=== PATIENT | male | born 1940 | race Caucasian/White ===

== ENCOUNTER 2019-10-14 15:12 | Outpatient (CLI) | payer MEDICARE, BC ==
--- NOTE | 2019-10-14 15:29 | RAD ---
PA AND LATERAL VIEWS CHEST: HISTORY: Positive PPD. Cough and shortness of breath. COMPARISON: 11/07/2015. FINDINGS: The heart size is normal. The lungs are expanded without lobar consolidation, pneumothoraces, or ple ural effusions. There are degenerative changes in the acromioclavicular joints. There is stable com pression of a lower thoracic/upper lumbar vertebral body. IMPRESSION: No acute process. No radiographic evidence of active pulmonary tuberculosis. POS: [facility]
== END 2019-10-14 15:13 | disposition home or self-care (01) ==
LOC: BICRAD 15:12
PROVIDERS: ATTEND Internal Medicine Rheumatology
DX: M05.79 Rheumatoid arthritis with rheumatoid factor of multiple sites without organ or systems involvement (principal)
CPT/HCPCS: 71046

== ENCOUNTER 2020-08-15 03:35 | Inpatient (IN) | payer MEDICARE, BC ==
[2020-08-15 04:34] LABS: #Eosinphils 0.2 thou/uL (0.0-0.7); #Lymphocytes 1.5 thou/uL (1.20-3.40); #Monocytes 1.4 thou/uL (0.11-0.59); %Basophils 0.2 % (0.0-1.0); %Eosinophils 1.1 % (0.0-10.0); %Lymphocytes 10.3 % (21.0-51.0); %Monocytes 10.2 % (0.0-10.0); %Neutrophils 78.2 % (42.0-75.0); Hemoglobin 13.4 g/dL (14.0-18.0); Mean Corpuscular HGB CONC 33.4 g/dL (32.0-36.0); Mean Corpuscular Hemoglobin 28.8 pg (27.0-31.0); Mean Corpuscular Volume 86.2 fL (78.0-98.0); Mean Platelet Volume 8.7 fL (7.4-10.4); Platelet Count 230 thou/uL (130-400); RBC Distribution Width 14.4 % (11.5-14.5); Red Blood Cell (RBC) Count 4.64 mill/uL (4.70-6.10); White Blood Cell (WBC) Count 14.1 thou/uL (4.8-10.8)
[2020-08-15 04:47] LABS: ALT (SGPT) 14 U/L (8-55); AST (SGOT) 15 U/L (5-34); Albumin 4.3 g/dL (3.4-4.8); Alkaline Phosphatase 118 U/L (40-110); Anion Gap 13 mmol/L (10-20); BUN (Urea Nitrogen) 33 mg/dL (8.4-25.7); Bilirubin, Total 0.7 mg/dL (0.2-1.2); Calc. Creatinine Clearance 0 mL/min (70-130); Calcium 9.1 mg/dL (7.8-10.44); Carbon Dioxide 23 mmol/L (23-31); Chloride 105 mmol/L (98-107); Globulin 3.9 g/dL (2.4-3.5); Glucose 186 mg/dL (83-110); Potassium 4.2 mmol/L (3.5-5.1); Protein, Total 8.2 g/dL (5.8-8.1); Sodium 137 mmol/L (136-145)
[2020-08-15] MEDS ORDERED: Morphine 4 MG/ML VIAL ONE (05:35)
[2020-08-15] MEDS ORDERED: Morphine 4 MG/ML VIAL SLOW IVP PRN (08:01)
[2020-08-15] MEDS ORDERED: Nitroglycerin 0.4 MG TAB (25 Tab Bottle) SL PRN (08:02)
[2020-08-15] MEDS ORDERED: Ondansetron PF 4 MG/2 ML Vial IVP PRN ×2 (08:15→09:01)
[2020-08-15] MEDS ORDERED: Ondansetron ODT 4 MG TAB SL PRN (08:15)
[2020-08-15] MEDS ORDERED: Acetaminophen 325 MG TAB PO PRN ×2 (08:15→09:01)
[2020-08-15 08:28] LABS: Troponin I 0.019 ng/mL (< 0.028)
[2020-08-15] MEDS ORDERED: Atorvastatin Calcium 20 MG TAB PO SCH (09:00)
[2020-08-15] MEDS ORDERED: Guaifenesin DM 100-10/5 ML UDCUP PO PRN (09:01)
[2020-08-15] MEDS ORDERED: Senokot S 8.6-50 MG TAB PO PRN (09:01)
[2020-08-15] MEDS ORDERED: Bisacodyl 10 MG SUPP PR PRN (09:01)
[2020-08-15] MEDS ORDERED: Calcium Carbonate 500 MG ChewTAB PO PRN (09:01)
[2020-08-15] MEDS ORDERED: Sodium Chloride 0.9% 1,000 ML IV SCH (09:01)
[2020-08-15] MEDS ORDERED: Albuterol 200 PUFF (6.7GM INHALER) INH SCH (09:15)
[2020-08-15] MEDS ORDERED: Aspirin Chewable 81 MG TAB ONE (11:29)
[2020-08-15] MEDS ORDERED: Levofloxacin 500 mg/D5W 100 ml Premix Bag ONE (11:31)
[2020-08-15] MEDS ORDERED: methylPREDNISolone Sod Succ 40 MG VIAL ONE (11:31)
[2020-08-15] MEDS ORDERED: Enoxaparin Sodium 40 MG/0.4 ML SYRINGE ONE (11:31)
[2020-08-15] MEDS ORDERED: Pantoprazole 40 MG VIAL ONE (11:39)
[2020-08-15] MEDS ORDERED: Nitroglycerin 2% Ointment 1 INCH/1 GM Packet ONE (11:39)
[2020-08-15] MEDS: Enoxaparin Sodium 40 MG/0.4 ML SYRINGE SC SCH (11:56)
[2020-08-15] MEDS: Aspirin Chewable 81 MG TAB PO SCH (11:56)
[2020-08-15] MEDS: methylPREDNISolone Sod Succ 40 MG VIAL IVP SCH ×3 (11:58→21:55)
[2020-08-15] MEDS: Nitroglycerin 2% Ointment 1 INCH/1 GM Packet TOP SCH ×2 (12:02→18:17)
[2020-08-15] MEDS ORDERED: Iopamidol 370 76% 100 ML VIAL ONE (13:00)
[2020-08-15 13:57] LABS: SARS-CoV-2 PCR by NAA Not Detected (NotDetected)
[2020-08-15] MEDS: Leflunomide 10 mg Tablet PO SCH (16:12)
[2020-08-15 17:32] VITALS: BMI 28.6
[2020-08-15] MEDS: Carvedilol 3.125 MG TAB PO SCH (18:33)
[2020-08-15] MEDS: Atorvastatin Calcium 20 MG TAB PO SCH (21:55)
[2020-08-16] MEDS: methylPREDNISolone Sod Succ 40 MG VIAL IVP SCH ×4 (04:16→20:44)
[2020-08-16 05:26] LABS: #Lymphocytes 0.9 thou/uL (1.20-3.40); #Monocytes 0.3 thou/uL (0.11-0.59); #Neutrophils 9.7 thou/uL (1.40-6.50); %Eosinophils 0.1 % (0.0-10.0); %Lymphocytes 8.2 % (21.0-51.0); %Monocytes 2.9 % (0.0-10.0); %Neutrophils 88.8 % (42.0-75.0); Mean Corpuscular HGB CONC 32.6 g/dL (32.0-36.0); Mean Corpuscular Hemoglobin 28.2 pg (27.0-31.0); Mean Corpuscular Volume 86.7 fL (78.0-98.0); Platelet Count 195 thou/uL (130-400); RBC Distribution Width 14.3 % (11.5-14.5); Red Blood Cell (RBC) Count 3.89 mill/uL (4.70-6.10); White Blood Cell (WBC) Count 10.9 thou/uL (4.8-10.8)
[2020-08-16 05:51] LABS: Anion Gap 14 mmol/L (10-20); BUN (Urea Nitrogen) 30 mg/dL (8.4-25.7); Calc. Creatinine Clearance 50 mL/min (70-130); Calcium 8.9 mg/dL (7.8-10.44); Carbon Dioxide 19 mmol/L (23-31); Cardiac Risk 2.3 (Less than 4.5); Chloride 107 mmol/L (98-107); Cholesterol 99 mg/dl (< 200 Desired); Glucose 212 mg/dL (83-110); HDL Cholesterol 43 mg/dL (>60 Neg Risk); LDL Cholesterol, Calculated 41 mg/dL; Potassium 3.8 mmol/L (3.5-5.1); Sodium 136 mmol/L (136-145); Triglycerides 74 mg/dL (Less than 150)
[2020-08-16] MEDS: Aspirin Chewable 81 MG TAB PO SCH (10:07)
[2020-08-16] MEDS: Carvedilol 3.125 MG TAB PO SCH ×2 (10:07→16:45)
[2020-08-16] MEDS: Enoxaparin Sodium 40 MG/0.4 ML SYRINGE SC SCH (10:08)
[2020-08-16] MEDS: Leflunomide 10 mg Tablet PO SCH (10:09)
[2020-08-16] MEDS ORDERED: Dextrose 50% Abboject 50 ML SYRINGE SLOW IVP PRN (11:44)
[2020-08-16] MEDS ORDERED: Dextrose 5% in Water 1,000 ML IV PRN (11:44)
[2020-08-16] MEDS ORDERED: ADENOSINE 60 MG/20 ML VIAL ONE (12:39)
[2020-08-16] MEDS: HumaLOG 300 UNITS/3 ML VIAL SC PRN ×2 (16:45→20:44)
[2020-08-16] MEDS: Atorvastatin Calcium 20 MG TAB PO SCH (20:43)
[2020-08-16] MEDS: guaiFENesin ER 600 MG TAB PO SCH (20:43)
[2020-08-17] MEDS: methylPREDNISolone Sod Succ 40 MG VIAL IVP SCH ×2 (04:55→11:09)
[2020-08-17] MEDS: HumaLOG 300 UNITS/3 ML VIAL SC PRN ×2 (06:35→11:09)
[2020-08-17 07:53] VITALS: TEMP 98.4
[2020-08-17] MEDS: Aspirin Chewable 81 MG TAB PO SCH (08:23)
[2020-08-17] MEDS: Leflunomide 10 mg Tablet PO SCH (08:23)
[2020-08-17] MEDS: guaiFENesin ER 600 MG TAB PO SCH (08:24)
[2020-08-17] MEDS: Carvedilol 3.125 MG TAB PO SCH (08:24)
[2020-08-17] MEDS: Enoxaparin Sodium 40 MG/0.4 ML SYRINGE SC SCH (08:24)
[2020-08-17 11:45] VITALS: BP 159/72
== END 2020-08-17 14:15 | disposition home or self-care (01) | DRG 189 ==
LOC: ERS 03:35 → ERHOLD 06:42 → OBSVTOIN 09:01 → 2NO 16:28
PROVIDERS: ADMIT Internal Medicine; ATTEND Student in an Organized Health Care Education/Training Program
DX: J96.01 Acute respiratory failure with hypoxia (principal); J44.1 Chronic obstructive pulmonary disease with (acute) exacerbation; N17.9 Acute kidney failure, unspecified; Z85.51 Personal history of malignant neoplasm of bladder; E78.5 Hyperlipidemia, unspecified; M06.9 Rheumatoid arthritis, unspecified; Z98.42 Cataract extraction status, left eye; Z79.82 Long term (current) use of aspirin; Z87.891 Personal history of nicotine dependence; Z80.8 Family history of malignant neoplasm of other organs or systems; Z66 Do not resuscitate; I12.9 Hypertensive chronic kidney disease with stage 1 through stage 4 chronic kidney disease, or unspecified chronic kidney disease; I25.10 Atherosclerotic heart disease of native coronary artery without angina pectoris; E11.22 Type 2 diabetes mellitus with diabetic chronic kidney disease; N18.30 Chronic kidney disease, stage 3 unspecified; R07.9 Chest pain, unspecified
CPT/HCPCS: 36415; 36416; 71045; 71275; 74174; 78452; 80048; 80053; 80061; 83605; 83880; 84484; 85025; 85379; 87040; 87070; 87205; 87635; 93005; 93017; 93306; 94640; 94760; 96374; A9500; C9113; G0378; J0153; J1650; J1956; J2270; J2920; J7620; Q9967; U0003; U0005

== ENCOUNTER 2021-09-04 05:45 | Inpatient (IN) | payer MEDICARE, BC ==
[2021-09-04 07:38] LABS: Troponin I 0.068 ng/mL (< 0.028)
[2021-09-04] MEDS ORDERED: HYDROcodone/Acetaminophen 5/325 mg Tablet PO PRN (07:44)
[2021-09-04] MEDS ORDERED: Acetaminophen 325 MG TAB PO PRN (07:44)
[2021-09-04] MEDS ORDERED: Sodium Chloride 0.9% 1,000 ML IV SCH (08:00)
[2021-09-04 08:01] LABS: Anion Gap 14 mmol/L (10-20); BUN (Urea Nitrogen) 46 mg/dL (8.4-25.7); Calc. Creatinine Clearance 0 mL/min (70-130); Calcium 7.7 mg/dL (7.8-10.44); Carbon Dioxide 13 mmol/L (23-31); Chloride 106 mmol/L (98-107); Glucose 211 mg/dL (83-110); Potassium 3.7 mmol/L (3.5-5.1); Sodium 129 mmol/L (136-145)
[2021-09-04] MEDS ORDERED: Dextrose 50% Abboject 50 ML SYRINGE SLOW IVP PRN (08:01)
[2021-09-04] MEDS ORDERED: Dextrose 5% in Water 1,000 ML IV PRN (08:01)
[2021-09-04] MEDS ORDERED: hydrALAZINE 20 MG/ML VIAL SLOW IVP PRN (08:02)
[2021-09-04 08:05] LABS: SARS-CoV-2 NAA Rapid Test Not Detected (NotDetected)
[2021-09-04 08:36] LABS: Hemoglobin 11.7 g/dL (14.0-18.0); Mean Corpuscular HGB CONC 33.7 g/dL (32.0-36.0); Mean Corpuscular Hemoglobin 30.5 pg (27.0-31.0); Mean Corpuscular Volume 90.7 fL (78.0-98.0); Mean Platelet Volume 7.6 fL (7.4-10.4); Platelet Count 220 thou/uL (130-400); RBC Distribution Width 15.6 % (11.5-14.5); Red Blood Cell (RBC) Count 3.84 mill/uL (4.70-6.10); White Blood Cell (WBC) Count 26.6 thou/uL (4.8-10.8)
[2021-09-04 09:11] LABS: Band 37 % (5-11); Lymphocytes 6 % (21-51); MDiff Complete? YES; Monocytes 6 % (0-10); Neutrophil 51 % (42-75); Platelet Morphology Comment Appears Adequate; RBC Morphology Normal
[2021-09-04] MEDS ORDERED: Sodium Bicarbonate 75 MEQ in Sodium Chloride 0.45% 1,000 ML IV SCH (09:15)
[2021-09-04] MEDS ORDERED: Piperacillin/Tazobactam 3.375 GM VIAL ONE (09:54)
[2021-09-04] MEDS ORDERED: Enoxaparin Sodium 30 MG/0.3 ML SYRINGE ONE (09:54)
[2021-09-04 11:06] LABS: Troponin I 0.061 ng/mL (< 0.028)
[2021-09-04] MEDS ORDERED: Vancomycin HCl 1.25 GM in Sodium Chloride 0.9% 250 ML 250 ML IVPB SCH (13:15)
[2021-09-04] MEDS: Enoxaparin Sodium 30 MG/0.3 ML SYRINGE SC SCH (14:06)
[2021-09-04] MEDS: guaiFENesin ER 600 MG TAB PO SCH ×2 (14:08→20:35)
[2021-09-04] MEDS: Piperacillin/Tazobactam 3.375 GM in Sodium Chloride 0.9% 100 ML IVPB SCH ×2 (14:09→20:35)
[2021-09-04] MEDS: Ondansetron PF 4 MG/2 ML Vial IVP PRN ×2 (15:07→20:15)
[2021-09-04] MEDS ORDERED: Amlodipine 10 MG TAB PO SCH (18:15)
[2021-09-04] MEDS: Mometasone 100 MCG/Formoterol 5 MCG 120 PUFF INHALER INH SCH (18:32)
[2021-09-05] MEDS ORDERED: Famotidine 20 MG TAB PO SCH (03:00)
[2021-09-05] MEDS: Ondansetron PF 4 MG/2 ML Vial IVP PRN ×2 (03:39→10:29)
[2021-09-05 05:18] LABS: Anion Gap 16 mmol/L (10-20); BUN (Urea Nitrogen) 56 mg/dL (8.4-25.7); Calc. Creatinine Clearance 22 mL/min (70-130); Calcium 7.7 mg/dL (7.8-10.44); Carbon Dioxide 14 mmol/L (23-31); Chloride 104 mmol/L (98-107); Glucose 165 mg/dL (83-110); Potassium 3.9 mmol/L (3.5-5.1); Sodium 130 mmol/L (136-145)
[2021-09-05] MEDS: Piperacillin/Tazobactam 3.375 GM in Sodium Chloride 0.9% 100 ML IVPB SCH ×2 (05:21→18:25)
[2021-09-05 05:53] LABS: Band 22 % (5-11); Hemoglobin 12.2 g/dL (14.0-18.0); Lymphocytes 2 % (21-51); MDiff Complete? YES; Mean Corpuscular HGB CONC 32.4 g/dL (32.0-36.0); Mean Corpuscular Hemoglobin 29.6 pg (27.0-31.0); Mean Corpuscular Volume 91.4 fL (78.0-98.0); Mean Platelet Volume 7.9 fL (7.4-10.4); Monocytes 1 % (0-10); Neutrophil 75 % (42-75); Platelet Count 219 thou/uL (130-400); RBC Distribution Width 15.9 % (11.5-14.5); Red Blood Cell (RBC) Count 4.11 mill/uL (4.70-6.10); White Blood Cell (WBC) Count 28.1 thou/uL (4.8-10.8)
[2021-09-05] MEDS: Mometasone 100 MCG/Formoterol 5 MCG 120 PUFF INHALER INH SCH ×2 (06:45→18:44)
[2021-09-05] MEDS: Aspirin Chewable 81 MG TAB PO SCH (09:38)
[2021-09-05] MEDS: Leflunomide 10 mg Tablet PO SCH (09:38)
[2021-09-05] MEDS: Magnesium Oxide 400 MG TAB PO SCH (09:38)
[2021-09-05] MEDS: Enoxaparin Sodium 30 MG/0.3 ML SYRINGE SC SCH (09:39)
[2021-09-05] MEDS: Empagliflozin 10 MG TAB PO SCH (09:39)
[2021-09-05] MEDS: Amlodipine 10 MG TAB PO SCH (09:39)
[2021-09-05] MEDS: Calcium Carbonate 600 MG + Vit D TAB PO SCH (09:39)
[2021-09-05] MEDS: Atorvastatin Calcium 20 MG TAB PO SCH (09:39)
[2021-09-05] MEDS: guaiFENesin ER 600 MG TAB PO SCH ×2 (09:39→20:58)
[2021-09-05 13:18] LABS: Vancomycin, Random 9.7 ug/mL (See Comment)
[2021-09-05] MEDS ORDERED: VANCOMYCIN 1.25 GM/250 ML BAG 1.25 GM in Premix Bag 1 BAG IVPB SCH (14:00)
[2021-09-05] MEDS ORDERED: Vancomycin 1 GM in Premix Bag 1 BAG IVPB SCH (14:30)
[2021-09-05] MEDS: Famotidine 20 MG TAB PO SCH (20:58)
[2021-09-06] MEDS: Piperacillin/Tazobactam 3.375 GM in Sodium Chloride 0.9% 100 ML IVPB SCH ×2 (05:35→19:02)
[2021-09-06] MEDS: Mometasone 100 MCG/Formoterol 5 MCG 120 PUFF INHALER INH SCH ×2 (07:34→18:54)
[2021-09-06] MEDS ORDERED: Sodium Chloride 0.9% 1,000 ML IV SCH (08:00)
[2021-09-06 09:12] LABS: Anion Gap 18 mmol/L (10-20); BUN (Urea Nitrogen) 66 mg/dL (8.4-25.7); Calc. Creatinine Clearance 17 mL/min (70-130); Calcium 8.1 mg/dL (7.8-10.44); Carbon Dioxide 14 mmol/L (23-31); Chloride 108 mmol/L (98-107); Glucose 133 mg/dL (83-110); Potassium 3.9 mmol/L (3.5-5.1); Sodium 136 mmol/L (136-145)
[2021-09-06] MEDS: Magnesium Oxide 400 MG TAB PO SCH (09:20)
[2021-09-06] MEDS: Aspirin Chewable 81 MG TAB PO SCH (09:20)
[2021-09-06] MEDS: Calcium Carbonate 600 MG + Vit D TAB PO SCH (09:21)
[2021-09-06] MEDS: guaiFENesin ER 600 MG TAB PO SCH ×2 (09:21→21:00)
[2021-09-06] MEDS: Empagliflozin 10 MG TAB PO SCH (09:21)
[2021-09-06] MEDS: Atorvastatin Calcium 20 MG TAB PO SCH (09:21)
[2021-09-06] MEDS: Amlodipine 10 MG TAB PO SCH (09:21)
[2021-09-06] MEDS: Leflunomide 10 mg Tablet PO SCH (09:21)
[2021-09-06] MEDS: Enoxaparin Sodium 30 MG/0.3 ML SYRINGE SC SCH (09:21)
[2021-09-06] MEDS: Sodium Chloride 0.9% 1,000 ML IV SCH (15:02)
[2021-09-06 15:26] LABS: Vancomycin, Random 16.7 ug/mL (See Comment)
[2021-09-06] MEDS ORDERED: Vancomycin 1 GM in Premix Bag 1 BAG IVPB SCH (15:30)
[2021-09-06] MEDS: HumaLOG 300 UNITS/3 ML VIAL SC PRN (19:02)
[2021-09-06] MEDS: Famotidine 20 MG TAB PO SCH (21:00)
[2021-09-07] MEDS: Sodium Chloride 0.9% 1,000 ML IV SCH ×2 (04:01→21:31)
[2021-09-07] MEDS: Piperacillin/Tazobactam 3.375 GM in Sodium Chloride 0.9% 100 ML IVPB SCH (05:18)
[2021-09-07 06:12] LABS: Anion Gap 13 mmol/L (10-20); BUN (Urea Nitrogen) 68 mg/dL (8.4-25.7); Calc. Creatinine Clearance 17 mL/min (70-130); Calcium 7.9 mg/dL (7.8-10.44); Carbon Dioxide 15 mmol/L (23-31); Chloride 110 mmol/L (98-107); Glucose 106 mg/dL (83-110); Potassium 3.4 mmol/L (3.5-5.1); Sodium 135 mmol/L (136-145)
[2021-09-07 06:38] LABS: Band 19 % (5-11); Eosinophils 1 % (0-10); Hemoglobin 10.2 g/dL (14.0-18.0); Lymphocytes 3 % (21-51); MDiff Complete? YES; Mean Corpuscular Hemoglobin 30.8 pg (27.0-31.0); Mean Corpuscular Volume 90.6 fL (78.0-98.0); Mean Platelet Volume 8.3 fL (7.4-10.4); Monocytes 4 % (0-10); Neutrophil 73 % (42-75); Platelet Count 164 thou/uL (130-400); RBC Distribution Width 15.8 % (11.5-14.5); Red Blood Cell (RBC) Count 3.32 mill/uL (4.70-6.10); White Blood Cell (WBC) Count 17.4 thou/uL (4.8-10.8)
[2021-09-07] MEDS: Mometasone 100 MCG/Formoterol 5 MCG 120 PUFF INHALER INH SCH ×2 (07:24→18:53)
[2021-09-07] MEDS ORDERED: Non-Formulary Item 1 EACH (Losartan Potassium [Cozaar] 50 MG Tablet) PO SCH (09:00)
[2021-09-07] MEDS: Aspirin Chewable 81 MG TAB PO SCH (09:28)
[2021-09-07] MEDS: Magnesium Oxide 400 MG TAB PO SCH (09:28)
[2021-09-07] MEDS: Enoxaparin Sodium 30 MG/0.3 ML SYRINGE SC SCH (09:28)
[2021-09-07] MEDS: Empagliflozin 10 MG TAB PO SCH (09:28)
[2021-09-07] MEDS: Atorvastatin Calcium 20 MG TAB PO SCH (09:28)
[2021-09-07] MEDS: Leflunomide 10 mg Tablet PO SCH (09:28)
[2021-09-07] MEDS: guaiFENesin ER 600 MG TAB PO SCH ×2 (09:28→21:32)
[2021-09-07] MEDS: Amlodipine 10 MG TAB PO SCH (09:28)
[2021-09-07] MEDS: Calcium Carbonate 600 MG + Vit D TAB PO SCH (09:28)
[2021-09-07 11:46] VITALS: BMI 27.8
[2021-09-07] MEDS: Sodium Bicarbonate Tab 325 MG TAB PO SCH ×2 (15:38→21:32)
[2021-09-07] MEDS: Famotidine 20 MG TAB PO SCH (21:32)
[2021-09-08] MEDS: Sodium Chloride 0.9% 1,000 ML IV SCH (05:25)
[2021-09-08] MEDS: Mometasone 100 MCG/Formoterol 5 MCG 120 PUFF INHALER INH SCH ×2 (06:37→18:39)
[2021-09-08] MEDS: Atorvastatin Calcium 20 MG TAB PO SCH (08:48)
[2021-09-08] MEDS: Calcium Carbonate 600 MG + Vit D TAB PO SCH (08:48)
[2021-09-08] MEDS: Empagliflozin 10 MG TAB PO SCH (08:48)
[2021-09-08] MEDS: Aspirin Chewable 81 MG TAB PO SCH (08:48)
[2021-09-08] MEDS: Amlodipine 10 MG TAB PO SCH (08:48)
[2021-09-08] MEDS: Enoxaparin Sodium 30 MG/0.3 ML SYRINGE SC SCH (08:48)
[2021-09-08] MEDS: guaiFENesin ER 600 MG TAB PO SCH ×2 (08:49→20:40)
[2021-09-08] MEDS: Sodium Bicarbonate Tab 325 MG TAB PO SCH ×3 (08:49→20:40)
[2021-09-08] MEDS: Leflunomide 10 mg Tablet PO SCH (08:49)
[2021-09-08] MEDS: Magnesium Oxide 400 MG TAB PO SCH (08:49)
[2021-09-08 09:56] LABS: Hemoglobin 10.4 g/dL (14.0-18.0); Mean Corpuscular HGB CONC 32.6 g/dL (32.0-36.0); Mean Corpuscular Hemoglobin 29.5 pg (27.0-31.0); Mean Corpuscular Volume 90.7 fL (78.0-98.0); Mean Platelet Volume 7.8 fL (7.4-10.4); Platelet Count 186 thou/uL (130-400); RBC Distribution Width 15.9 % (11.5-14.5); Red Blood Cell (RBC) Count 3.51 mill/uL (4.70-6.10)
[2021-09-08 10:16] LABS: Anion Gap 17 mmol/L (10-20); BUN (Urea Nitrogen) 68 mg/dL (8.4-25.7); Calc. Creatinine Clearance 16 mL/min (70-130); Calcium 7.7 mg/dL (7.8-10.44); Carbon Dioxide 12 mmol/L (23-31); Chloride 110 mmol/L (98-107); Glucose 157 mg/dL (83-110); Potassium 3.4 mmol/L (3.5-5.1); Sodium 136 mmol/L (136-145)
[2021-09-08 10:56] LABS: Band 15 % (5-11); Lymphocytes 5 % (21-51); MDiff Complete? YES; Monocytes 6 % (0-10); Neutrophil 74 % (42-75); Platelet Morphology Comment Appears Adequate; Polychromasia SLIGHT = 2-3 cells (100X) (0-2/hpf)
[2021-09-08] MEDS: HumaLOG 300 UNITS/3 ML VIAL SC PRN (11:21)
[2021-09-08] MEDS: Lactated Ringer's 1,000 ML IV SCH ×2 (12:18→20:50)
[2021-09-08 16:38] LABS: Clarity Hazy (Clear); Leukocyte Unable to Interpret (Negative); Nitrite Unable to Interpret (Negative); Protein, Urine (Dipstick) Unable to Interpret mg/dL (Neg-Trace)
[2021-09-08 16:39] LABS: Bilirubin Unable to Interpret (Negative); Blood, Urine Unable to Interpret (Negative); Glucose, Urine (Dipstick) Unable to Interpret mg/dL (Negative); Ketone, Urine Unable to Interpret mg/dL (Negative); RBC/HPF 21-50 HPF (0-3); Urobilinogen UNABLE TO INTERPRET mg/dL (Less than 2)
[2021-09-08 16:40] LABS: Bacteria/HPF Rare-Few HPF (None Seen); Squamous Epithelial None Seen HPF (0-3)
[2021-09-08] MEDS ORDERED: methylPREDNISolone Sod Succ/PF 125 MG/2 ML VIAL IVP SCH (19:28)
[2021-09-08] MEDS: Famotidine 20 MG TAB PO SCH (20:40)
[2021-09-09] MEDS: HumaLOG 300 UNITS/3 ML VIAL SC PRN ×2 (05:23→20:29)
[2021-09-09] MEDS ORDERED: methylPREDNISolone Sod Succ 40 MG VIAL IVP SCH (06:00)
[2021-09-09 06:27] LABS: Anion Gap 21 mmol/L (10-20); BUN (Urea Nitrogen) 70 mg/dL (8.4-25.7); Calc. Creatinine Clearance 16 mL/min (70-130); Carbon Dioxide 10 mmol/L (23-31); Chloride 110 mmol/L (98-107); Glucose 212 mg/dL (83-110); Potassium 3.7 mmol/L (3.5-5.1); Sodium 137 mmol/L (136-145)
[2021-09-09 06:37] LABS: Band 16 % (5-11); Hemoglobin 10.3 g/dL (14.0-18.0); Lymphocytes 5 % (21-51); MDiff Complete? YES; Mean Corpuscular Hemoglobin 29.9 pg (27.0-31.0); Mean Corpuscular Volume 90.7 fL (78.0-98.0); Mean Platelet Volume 7.8 fL (7.4-10.4); Monocytes 1 % (0-10); Neutrophil 78 % (42-75); Platelet Count 185 thou/uL (130-400); Platelet Morphology Comment Appears Adequate; RBC Distribution Width 15.7 % (11.5-14.5); RBC Morphology Normal; Red Blood Cell (RBC) Count 3.44 mill/uL (4.70-6.10); White Blood Cell (WBC) Count 8.4 thou/uL (4.8-10.8)
[2021-09-09] MEDS: Mometasone 100 MCG/Formoterol 5 MCG 120 PUFF INHALER INH SCH ×2 (07:51→18:43)
[2021-09-09] MEDS ORDERED: methylPREDNISolone Sod Succ/PF 125 MG/2 ML VIAL IVP SCH (09:00)
[2021-09-09] MEDS: Enoxaparin Sodium 30 MG/0.3 ML SYRINGE SC SCH (09:42)
[2021-09-09] MEDS: Calcium Carbonate 600 MG + Vit D TAB PO SCH (09:42)
[2021-09-09] MEDS: Sodium Bicarbonate Tab 325 MG TAB PO SCH ×3 (09:42→20:28)
[2021-09-09] MEDS: guaiFENesin ER 600 MG TAB PO SCH ×2 (09:42→20:28)
[2021-09-09] MEDS: Aspirin Chewable 81 MG TAB PO SCH (09:42)
[2021-09-09] MEDS: Atorvastatin Calcium 20 MG TAB PO SCH (09:42)
[2021-09-09] MEDS: Magnesium Oxide 400 MG TAB PO SCH (09:42)
[2021-09-09] MEDS: Amlodipine 10 MG TAB PO SCH (09:43)
[2021-09-09] MEDS: Lactated Ringer's 1,000 ML IV SCH ×2 (09:43→18:16)
[2021-09-09] MEDS: Empagliflozin 10 MG TAB PO SCH (10:02)
[2021-09-09] MEDS: Leflunomide 10 mg Tablet PO SCH (10:02)
[2021-09-09] MEDS ORDERED: Saccharomyces boulardii 250 MG CAP PO SCH (11:15)
[2021-09-09] MEDS: WATER IV SCH (14:58)
[2021-09-09] MEDS: POTASSIUM CHLORIDE IV SCH (14:58)
[2021-09-09] MEDS: DEXTROSE 5% IV SCH (14:58)
[2021-09-09] MEDS: Saccharomyces boulardii 250 MG CAP PO SCH (14:58)
[2021-09-09] MEDS: SODIUM BICARBONATE IV SCH (14:58)
[2021-09-09] MEDS: Famotidine 20 MG TAB PO SCH (20:29)
[2021-09-10] MEDS: WATER IV SCH (01:44)
[2021-09-10] MEDS: DEXTROSE 5% IV SCH (01:44)
[2021-09-10] MEDS: POTASSIUM CHLORIDE IV SCH (01:44)
[2021-09-10] MEDS: SODIUM BICARBONATE IV SCH (01:44)
[2021-09-10] MEDS ORDERED: HumaLOG 300 UNITS/3 ML VIAL SC PRN (05:40)
[2021-09-10] MEDS: HumaLOG 300 UNITS/3 ML VIAL SC PRN ×2 (05:54→11:38)
[2021-09-10 06:07] LABS: #Lymphocytes 0.3 thou/uL (1.20-3.40); #Monocytes 0.5 thou/uL (0.11-0.59); #Neutrophils 5.7 thou/uL (1.40-6.50); %Eosinophils 0.1 % (0.0-10.0); %Lymphocytes 5.2 % (21.0-51.0); %Monocytes 7.9 % (0.0-10.0); %Neutrophils 86.9 % (42.0-75.0); Hemoglobin 8.6 g/dL (14.0-18.0); Mean Corpuscular HGB CONC 34.5 g/dL (32.0-36.0); Mean Corpuscular Hemoglobin 31.2 pg (27.0-31.0); Mean Corpuscular Volume 90.4 fL (78.0-98.0); Mean Platelet Volume 8.2 fL (7.4-10.4); Platelet Count 174 thou/uL (130-400); RBC Distribution Width 16.3 % (11.5-14.5); Red Blood Cell (RBC) Count 2.75 mill/uL (4.70-6.10); White Blood Cell (WBC) Count 6.6 thou/uL (4.8-10.8)
[2021-09-10 06:38] LABS: Anion Gap 15 mmol/L (10-20); BUN (Urea Nitrogen) 69 mg/dL (8.4-25.7); Calc. Creatinine Clearance 19 mL/min (70-130); Calcium 7.1 mg/dL (7.8-10.44); Carbon Dioxide 27 mmol/L (23-31); Chloride 100 mmol/L (98-107); Potassium 4.1 mmol/L (3.5-5.1); Sodium 138 mmol/L (136-145)
[2021-09-10 06:44] LABS: Glucose 692 mg/dL (83-110)
[2021-09-10] MEDS ORDERED: Sodium Chloride 0.9% 1,000 ML IV SCH (07:00)
[2021-09-10] MEDS ORDERED: Insulin Regular 300 UNITS/3 ML VIAL IVP SCH (07:00)
[2021-09-10] MEDS: Mometasone 100 MCG/Formoterol 5 MCG 120 PUFF INHALER INH SCH (08:12)
[2021-09-10] MEDS ORDERED: Non-Formulary Item 1 EACH (Cyanocobalamin (Vitamin B-12) [Vitamin B12] 5,000 MCG Tab.Rapd PO SCH (09:00)
[2021-09-10 09:07] VITALS: BP 128/66; TEMP 97.3
[2021-09-10] MEDS: Atorvastatin Calcium 20 MG TAB PO SCH (09:07)
[2021-09-10] MEDS: Leflunomide 10 mg Tablet PO SCH (09:07)
[2021-09-10] MEDS: Sodium Bicarbonate Tab 325 MG TAB PO SCH (09:08)
[2021-09-10] MEDS: Calcium Carbonate 600 MG + Vit D TAB PO SCH (09:08)
[2021-09-10] MEDS: Aspirin Chewable 81 MG TAB PO SCH (09:08)
[2021-09-10] MEDS: Saccharomyces boulardii 250 MG CAP PO SCH (09:08)
[2021-09-10] MEDS: Empagliflozin 10 MG TAB PO SCH (09:09)
[2021-09-10] MEDS: Magnesium Oxide 400 MG TAB PO SCH (09:09)
[2021-09-10] MEDS: Amlodipine 10 MG TAB PO SCH (09:09)
[2021-09-10] MEDS: guaiFENesin ER 600 MG TAB PO SCH (09:09)
[2021-09-10] MEDS: Enoxaparin Sodium 30 MG/0.3 ML SYRINGE SC SCH (09:10)
[2021-09-10] MEDS ORDERED: Cyanocobalamin (Vitamin B-12) 1,000 MCG TAB PO SCH (09:30)
[2021-09-17] MEDS ORDERED: Cyanocobalamin (Vitamin B-12) 1,000 MCG TAB PO SCH (09:00)
== END 2021-09-10 12:57 | disposition home or self-care (01) | DRG 698 ==
LOC: ERS 05:45 → ERHOLD 06:34 → 2NO 12:25 → MSONC 09-06 16:07
PROVIDERS: ADMIT Internal Medicine; ATTEND Internal Medicine
DX: T83.593A Infection and inflammatory reaction due to other urinary stents, initial encounter (principal); J69.0 Pneumonitis due to inhalation of food and vomit; A41.51 Sepsis due to Escherichia coli [E. coli]; J96.01 Acute respiratory failure with hypoxia; A41.59 Other Gram-negative sepsis; E87.2 Acidosis; N17.9 Acute kidney failure, unspecified; I13.0 Hypertensive heart and chronic kidney disease with heart failure and stage 1 through stage 4 chronic kidney disease, or unspecified chronic kidney disease; C64.1 Malignant neoplasm of right kidney, except renal pelvis; N39.0 Urinary tract infection, site not specified; I50.32 Chronic diastolic (congestive) heart failure; Z20.822 Contact with and (suspected) exposure to COVID-19; E78.5 Hyperlipidemia, unspecified; M06.9 Rheumatoid arthritis, unspecified; N18.30 Chronic kidney disease, stage 3 unspecified; C67.9 Malignant neoplasm of bladder, unspecified; E11.22 Type 2 diabetes mellitus with diabetic chronic kidney disease; D63.1 Anemia in chronic kidney disease; E11.65 Type 2 diabetes mellitus with hyperglycemia; J44.9 Chronic obstructive pulmonary disease, unspecified; E87.6 Hypokalemia; Z98.42 Cataract extraction status, left eye; Z79.82 Long term (current) use of aspirin; Z79.52 Long term (current) use of systemic steroids; Z79.899 Other long term (current) drug therapy; Z90.49 Acquired absence of other specified parts of digestive tract; Z80.8 Family history of malignant neoplasm of other organs or systems; Z92.21 Personal history of antineoplastic chemotherapy
CPT/HCPCS: 36415; 36416; 71045; 71046; 74176; 80048; 80202; 81003; 81015; 83880; 84145; 84484; 85025; 85652; 86140; 87040; 87077; 87149; 87186; 93306; 94640; 94799; J1650; J1815; J2405; J2543; J2920; J2930; J3370; J3480; J3490; J7050; J7070; J7120; J7620; U0002

== ENCOUNTER 2022-06-06 08:01 | Outpatient (CLI) | payer MEDICARE, BC ==
[2022-06-06] MEDS ORDERED: Magnevist 469MG/ML 20 ML VIAL ONE (15:17)
== END 2022-06-06 08:02 | disposition home or self-care (01) ==
LOC: TBSIIMAG 08:01
PROVIDERS: ATTEND Internal Medicine Hematology & Oncology
DX: H49.22 Sixth [abducent] nerve palsy, left eye (principal); C67.0 Malignant neoplasm of trigone of bladder; H16.422 Pannus (corneal), left eye
CPT/HCPCS: 70553; A9579

== ENCOUNTER 2022-07-11 07:31 | Inpatient (IN) | payer MEDICARE, BC ==
[2022-07-11] MEDS ORDERED: Cefepime 2 GM VIAL ONE (08:13)
[2022-07-11 08:18] LABS: Bacteria/HPF 2+ HPF (None Seen); Bilirubin Negative (Negative); Blood, Urine 3+ (Negative); Clarity Turbid (Clear); Glucose, Urine (Dipstick) Normal (Negative); Ketone, Urine Negative (Negative); Leukocyte 500 Leu/uL (Negative); Nitrite Negative (Negative); Protein, Urine (Dipstick) 50 mg/dL (Neg-Trace); RBC/HPF 21-50 HPF (0-3); Specific Gravity, Urine 1.009 (1.002-1.036); Squamous Epithelial None Seen HPF (0-3); Urobilinogen Normal mg/dL (Less than 2); WBC/HPF Greater than 50 HPF (0-3); pH, Urine 6.5 (5.0-9.0)
[2022-07-11 08:35] LABS: Hemoglobin 10.2 g/dL (14.0-18.0); Mean Corpuscular Hemoglobin 27.6 pg (27.0-31.0); Mean Corpuscular Volume 86.2 fl (78.0-98.0); Mean Platelet Volume 8.8 fL (7.4-10.4); Platelet Count 250 10x3/uL (130-400); RBC Distribution Width 15.6 % (11.5-14.5); White Blood Cell (WBC) Count 22.3 10x3/uL (4.8-10.8)
[2022-07-11 08:50] LABS: INR-International Normal Ratio 1.2; Prothrombin Time 15.9 sec (12.0-14.7)
[2022-07-11 08:51] LABS: PTT 37.5 sec (22.9-36.1)
[2022-07-11] MEDS ORDERED: Clindamycin/D5W 900 mg/50 ml Premix Bag ONE (08:55)
[2022-07-11 09:12] LABS: Band 16 % (5-11); Eosinophils 1 % (0-10); Lymphocytes 5 % (21-51); MDiff Complete? YES; Monocytes 10 % (0-10); Neutrophil 68 % (42-75); Platelet Morphology Comment Appears Adequate; Polychromasia SLIGHT = 2-3 cells (100X) (0-2/hpf)
[2022-07-11 09:14] LABS: ALT (SGPT) 12 U/L (8-55); AST (SGOT) 13 U/L (5-34); Alkaline Phosphatase 133 U/L (40-110); Anion Gap 14 mmol/L (10-20); BUN (Urea Nitrogen) 56 mg/dL (8.4-25.7); Bilirubin, Total 0.6 mg/dL (0.2-1.2); Calc. Creatinine Clearance 0 mL/min (70-130); Carbon Dioxide 14 mmol/L (23-31); Chloride 109 mmol/L (98-107); Estimated GFR 20; Globulin 3.1 g/dL (2.4-3.5); Glucose 107 mg/dL (83-110); Magnesium 1.9 mg/dL (1.6-2.6); Protein, Total 6.1 g/dL (5.8-8.1); Sodium 133 mmol/L (136-145)
[2022-07-11 09:32] LABS: CKMB 0.8 ng/mL (0-6.6)
[2022-07-11] MEDS ORDERED: Senokot S 8.6-50 MG TAB PO PRN (10:33)
[2022-07-11] MEDS ORDERED: Guaifenesin DM 100-10/5 ML UDCUP PO PRN (10:33)
[2022-07-11 10:56] LABS: SARS-CoV-2 NAA Rapid Test Not Detected (NotDetected)
[2022-07-11] MEDS ORDERED: Famotidine/PF 20 mg/2ml Vial ONE (11:06)
[2022-07-11] MEDS ORDERED: SUGAMMADEX SODIUM 200 MG/2 ML VIAL ONE ×2 (11:06→11:34)
[2022-07-11] MEDS ORDERED: fentaNYL PF 100 MCG/2 ML SYRINGE ONE (11:06)
[2022-07-11] MEDS ORDERED: Ipratropium/Albuterol 3 ML NEB ONE ×2 (11:17→13:16)
[2022-07-11] MEDS ORDERED: Metoprolol Tartrate 5 MG/5 ML VIAL ONE (11:36)
[2022-07-11] MEDS ORDERED: Ondansetron PF 4 MG/2 ML Vial ONE (11:36)
[2022-07-11] MEDS ORDERED: Lidocaine 1% PF 5 ML VIAL ONE (11:36)
[2022-07-11] MEDS ORDERED: Rocuronium Bromide 10 MG/ML (10ML VIAL) ONE (11:36)
[2022-07-11] MEDS ORDERED: PROPOFOL 200 MG/20 ML VIAL ONE (11:36)
[2022-07-11] MEDS ORDERED: Ondansetron HCl/PF 4 MG/2 ML Vial IVP PRN (13:17)
[2022-07-11] MEDS ORDERED: Ipratropium/Albuterol 3 ML NEB EZPAP SCH (13:17)
[2022-07-11] MEDS ORDERED: fentaNYL 50 mcg/mL 1 mL Vial ONE (13:44)
[2022-07-11 14:49] LABS: Troponin I 0.024 ng/mL (< 0.028)
[2022-07-11] MEDS: Acetaminophen 325 MG TAB PO PRN (15:33)
[2022-07-11] MEDS ORDERED: VANCOMYCIN 1.25 GM/250 ML BAG 1.25 GM in Premix Bag 1 BAG IVPB SCH (16:15)
[2022-07-11] MEDS ORDERED: Vancomycin Dose by Levels Sliding Scale (Wt 71-99) FS SCH (16:15)
[2022-07-11 16:50] LABS: Troponin I 0.033 ng/mL (< 0.028)
[2022-07-11] MEDS: Ipratropium/Albuterol 3 ML NEB NEB SCH (18:36)
[2022-07-11] MEDS: HYDROcodone/Acetaminophen 5/325 mg Tablet PO PRN (19:39)
[2022-07-11] MEDS ORDERED: Vancomycin HCl 1 GM in Sodium Chloride 0.9% 250 ML 300 ML IVPB SCH (21:00)
[2022-07-11] MEDS ORDERED: Sodium Chloride 0.9% 1,000 ML IV SCH (21:30)
[2022-07-12] MEDS: Ipratropium/Albuterol 3 ML NEB NEB SCH ×5 (02:07→22:41)
[2022-07-12 04:44] LABS: Hemoglobin 9.4 g/dL (14.0-18.0); Mean Corpuscular Hemoglobin 27.7 pg (27.0-31.0); Mean Corpuscular Volume 86.4 fl (78.0-98.0); Platelet Count 199 10x3/uL (130-400); RBC Distribution Width 15.6 % (11.5-14.5)
[2022-07-12 05:03] LABS: Anion Gap 16 mmol/L (10-20); BUN (Urea Nitrogen) 56 mg/dL (8.4-25.7); Calc. Creatinine Clearance 20 mL/min (70-130); Calcium 7.8 mg/dL (7.8-10.44); Chloride 114 mmol/L (98-107); Estimated GFR 19; Glucose 91 mg/dL (83-110); Potassium 3.7 mmol/L (3.5-5.1); Sodium 135 mmol/L (136-145)
[2022-07-12 05:16] LABS: Carbon Dioxide 9 mmol/L (23-31)
[2022-07-12 06:08] LABS: Anisocytosis SLIGHT = 6-15 cells (100X) (0-5/hpf); Band 5 % (5-11); Lymphocytes 5 % (21-51); MDiff Complete? YES; Monocytes 8 % (0-10); Neutrophil 82 % (42-75); Ovalocytes SLIGHT = 2-5 cells (100X) (0-1/hpf); Platelet Morphology Comment Appears Adequate; Polychromasia SLIGHT = 2-3 cells (100X) (0-2/hpf)
[2022-07-12] MEDS ORDERED: Dextrose 5% in Water 1,000 ML IV SCH (06:15)
[2022-07-12] MEDS ORDERED: Cefepime 2 GM in Sodium Chloride 0.9% 100 ML IVPB SCH (08:00)
[2022-07-12] MEDS ORDERED: Vancomycin 1 GM in Premix Bag 1 BAG IVPB SCH (08:45)
[2022-07-12] MEDS: Atorvastatin Calcium 20 MG TAB PO SCH (08:48)
[2022-07-12] MEDS: Cholecalciferol 1,000 UNITS (25 MCG) TAB PO SCH (08:48)
[2022-07-12] MEDS: Magnesium Oxide 400 MG TAB PO SCH (08:49)
[2022-07-12] MEDS: Amlodipine 10 MG TAB PO SCH (08:49)
[2022-07-12] MEDS: Leflunomide 10 mg Tablet PO SCH (08:49)
[2022-07-12] MEDS: Aspirin Chewable 81 MG TAB PO SCH (08:49)
[2022-07-12] MEDS: Cyanocobalamin (Vitamin B-12) 1,000 MCG TAB PO SCH (08:49)
[2022-07-12] MEDS: Empagliflozin 10 MG TAB PO SCH (08:50)
[2022-07-12] MEDS: HYDROcodone/Acetaminophen 5/325 mg Tablet PO PRN (08:55)
[2022-07-12] MEDS: Sodium Bicarbonate 150 MEQ in Dextrose 5% in Water 850 ML IV SCH ×2 (09:14→18:19)
[2022-07-12] MEDS ORDERED: Heparin 5,000 UNITS/ML VIAL SC SCH (09:15)
[2022-07-12] MEDS: Heparin 5,000 UNITS/ML VIAL SC SCH ×3 (09:26→22:25)
[2022-07-12] MEDS ORDERED: Meropenem 1 GM in Sodium Chloride 0.9% 100 ML IVPB SCH (09:30)
[2022-07-12 18:01] LABS: Vancomycin, Random 11.6 ug/mL (See Comment)
[2022-07-12] MEDS ORDERED: Vancomycin HCl 750 MG in Sodium Chloride 0.9% 250 ML 250 ML IVPB SCH (18:30)
[2022-07-12] MEDS: Acetaminophen 325 MG TAB PO PRN (20:39)
[2022-07-12] MEDS ORDERED: Acetaminophen 325 MG TAB PO SCH (21:30)
[2022-07-12 21:41] LABS: Mean Corpuscular HGB CONC 32.3 g/dL (32.0-36.0); Mean Corpuscular Hemoglobin 27.8 pg (27.0-31.0); Mean Corpuscular Volume 85.9 fl (78.0-98.0); Mean Platelet Volume 8.7 fL (7.4-10.4); Platelet Count 258 10x3/uL (130-400); RBC Distribution Width 15.5 % (11.5-14.5); Red Blood Cell (RBC) Count 3.25 mill/uL (4.70-6.10); White Blood Cell (WBC) Count 19.1 10x3/uL (4.8-10.8)
[2022-07-12 21:57] LABS: Anion Gap 16 mmol/L (10-20); BUN (Urea Nitrogen) 54 mg/dL (8.4-25.7); Calc. Creatinine Clearance 19 mL/min (70-130); Calcium 7.7 mg/dL (7.8-10.44); Carbon Dioxide 12 mmol/L (23-31); Chloride 112 mmol/L (98-107); Estimated GFR 18; Glucose 161 mg/dL (83-110); Magnesium 1.9 mg/dL (1.6-2.6); Potassium 3.7 mmol/L (3.5-5.1); Sodium 136 mmol/L (136-145)
[2022-07-12 22:07] LABS: Anisocytosis SLIGHT = 6-15 cells (100X) (0-5/hpf); Band 23 % (5-11); Eosinophils 1 % (0-10); Lymphocytes 2 % (21-51); MDiff Complete? YES; Monocytes 4 % (0-10); Neutrophil 69 % (42-75); Platelet Morphology Comment Appears Adequate
[2022-07-12] MEDS: Meropenem 500 MG in Sodium Chloride 0.9% 100 ML IVPB SCH (22:24)
[2022-07-13] MEDS: HYDROcodone/Acetaminophen 5/325 mg Tablet PO PRN ×3 (01:47→17:39)
[2022-07-13 04:39] LABS: Magnesium 1.8 mg/dL (1.6-2.6)
[2022-07-13] MEDS: Sodium Bicarbonate 150 MEQ in Dextrose 5% in Water 850 ML IV SCH ×2 (05:54→17:30)
[2022-07-13] MEDS: Heparin 5,000 UNITS/ML VIAL SC SCH (06:05)
[2022-07-13] MEDS: Ipratropium/Albuterol 3 ML NEB NEB SCH ×4 (07:36→22:33)
[2022-07-13] MEDS: Mometasone 100 MCG/Formoterol 5 MCG 120 PUFF INHALER INH SCH ×2 (07:48→19:18)
[2022-07-13] MEDS: Morphine 2 MG/ML VIAL SLOW IVP PRN ×2 (07:50→13:03)
[2022-07-13] MEDS: Meropenem 500 MG in Sodium Chloride 0.9% 100 ML IVPB SCH ×2 (09:09→20:50)
[2022-07-13] MEDS: Cholecalciferol 1,000 UNITS (25 MCG) TAB PO SCH (09:15)
[2022-07-13] MEDS: Atorvastatin Calcium 20 MG TAB PO SCH (09:15)
[2022-07-13] MEDS: Amlodipine 10 MG TAB PO SCH (09:15)
[2022-07-13] MEDS: Aspirin Chewable 81 MG TAB PO SCH (09:15)
[2022-07-13] MEDS: Cyanocobalamin (Vitamin B-12) 1,000 MCG TAB PO SCH (09:16)
[2022-07-13] MEDS: Empagliflozin 10 MG TAB PO SCH (09:16)
[2022-07-13] MEDS: Leflunomide 10 mg Tablet PO SCH (09:17)
[2022-07-13] MEDS: Magnesium Oxide 400 MG TAB PO SCH (09:17)
[2022-07-13] MEDS ORDERED: Amiodarone 150 MG in Dextrose 5% in Water 100 ML IVPB SCH (09:30)
[2022-07-13] MEDS ORDERED: Lidocaine 4% Topical Sol 50 ML BOT TOP PRN (11:44)
[2022-07-13 12:08] LABS: Anion Gap 17 mmol/L (10-20); BUN (Urea Nitrogen) 51 mg/dL (8.4-25.7); Calc. Creatinine Clearance 20 mL/min (70-130); Calcium 8.2 mg/dL (7.8-10.44); Carbon Dioxide 18 mmol/L (23-31); Chloride 108 mmol/L (98-107); Estimated GFR 19; Glucose 153 mg/dL (83-110); Potassium 3.3 mmol/L (3.5-5.1); Sodium 140 mmol/L (136-145)
[2022-07-13] MEDS: Albumin 25% 25 GM/100 ML BOT IVPB SCH ×2 (13:10→17:30)
[2022-07-13] MEDS ORDERED: Potassium Chloride 20 MEQ TAB PO SCH (16:00)
[2022-07-13] MEDS ORDERED: Vancomycin HCl 500 MG in Sodium Chloride 0.9% 100 ML IV SCH (18:00)
[2022-07-13] MEDS: Metoprolol Tartrate 25 MG TAB PO SCH (20:57)
[2022-07-14] MEDS: Albumin 25% 25 GM/100 ML BOT IVPB SCH ×4 (00:04→18:34)
[2022-07-14] MEDS: HYDROcodone/Acetaminophen 5/325 mg Tablet PO PRN (00:15)
[2022-07-14] MEDS: Morphine 2 MG/ML VIAL SLOW IVP PRN ×2 (02:15→10:40)
[2022-07-14] MEDS: Ondansetron PF 4 MG/2 ML Vial IVP PRN (02:30)
[2022-07-14] MEDS: Sodium Bicarbonate 150 MEQ in Dextrose 5% in Water 850 ML IV SCH ×3 (06:23→19:00)
[2022-07-14] MEDS: Ipratropium/Albuterol 3 ML NEB NEB SCH ×3 (06:47→18:51)
[2022-07-14] MEDS: Mometasone 100 MCG/Formoterol 5 MCG 120 PUFF INHALER INH SCH ×2 (06:58→18:59)
[2022-07-14 07:25] LABS: Anion Gap 17 mmol/L (10-20); BUN (Urea Nitrogen) 49 mg/dL (8.4-25.7); Calc. Creatinine Clearance 22 mL/min (70-130); Calcium 8.3 mg/dL (7.8-10.44); Carbon Dioxide 21 mmol/L (23-31); Chloride 104 mmol/L (98-107); Estimated GFR 21; Glucose 142 mg/dL (83-110); Magnesium 1.9 mg/dL (1.6-2.6); Potassium 3.3 mmol/L (3.5-5.1); Sodium 139 mmol/L (136-145)
[2022-07-14] MEDS ORDERED: Benzocaine 20% Spray 60 ML CAN PO SCH (09:30)
[2022-07-14] MEDS ORDERED: Piperacillin/Tazobactam 3.375 GM in Sodium Chloride 0.9% 100 ML IVPB SCH ×2 (10:00→14:00)
[2022-07-14] MEDS: Atorvastatin Calcium 20 MG TAB PO SCH (10:27)
[2022-07-14] MEDS: Cyanocobalamin (Vitamin B-12) 1,000 MCG TAB PO SCH (10:27)
[2022-07-14] MEDS: Cholecalciferol 1,000 UNITS (25 MCG) TAB PO SCH (10:27)
[2022-07-14] MEDS: Amlodipine 10 MG TAB PO SCH (10:39)
[2022-07-14] MEDS: Magnesium Oxide 400 MG TAB PO SCH (10:42)
[2022-07-14] MEDS: Leflunomide 10 mg Tablet PO SCH (10:42)
[2022-07-14] MEDS: Empagliflozin 10 MG TAB PO SCH (10:42)
[2022-07-14] MEDS: Aspirin Chewable 81 MG TAB PO SCH (10:42)
[2022-07-14] MEDS: Metoprolol Tartrate 25 MG TAB PO SCH ×2 (10:43→21:44)
[2022-07-14] MEDS: Meropenem 500 MG in Sodium Chloride 0.9% 100 ML IVPB SCH (10:44)
[2022-07-14] MEDS ORDERED: Potassium Chloride 40 MEQ in Premix Bag 1 BAG IVPB SCH (12:00)
[2022-07-14] MEDS ORDERED: Potassium Chloride 40 MEQ in Sodium Chloride 0.9% 250 ML 250 ML IVPB SCH (12:00)
[2022-07-14 17:24] LABS: Vancomycin, Random 15.8 ug/mL (See Comment)
[2022-07-14] MEDS ORDERED: Vancomycin HCl 500 MG in Sodium Chloride 0.9% 100 ML IV SCH (18:15)
[2022-07-14] MEDS: Piperacillin/Tazobactam 3.375 GM in Sodium Chloride 0.9% 100 ML IVPB SCH (21:50)
[2022-07-15] MEDS: Albumin 25% 25 GM/100 ML BOT IVPB SCH ×2 (01:37→05:43)
[2022-07-15] MEDS: Ipratropium/Albuterol 3 ML NEB NEB SCH ×4 (02:17→19:08)
[2022-07-15 04:22] LABS: Hemoglobin 9.2 g/dL (14.0-18.0); Magnesium 1.9 mg/dL (1.6-2.6); Mean Corpuscular HGB CONC 32.2 g/dL (32.0-36.0); Mean Corpuscular Hemoglobin 27.4 pg (27.0-31.0); Mean Corpuscular Volume 85.1 fl (78.0-98.0); Mean Platelet Volume 8.4 fL (7.4-10.4); Platelet Count 241 10x3/uL (130-400); RBC Distribution Width 15.7 % (11.5-14.5); Red Blood Cell (RBC) Count 3.37 mill/uL (4.70-6.10); White Blood Cell (WBC) Count 13.6 10x3/uL (4.8-10.8)
[2022-07-15 04:23] LABS: Anisocytosis SLIGHT = 6-15 cells (100X) (0-5/hpf); Band 32 % (5-11); Eosinophils 4 % (0-10); Lymphocytes 10 % (21-51); MDiff Complete? YES; Monocytes 7 % (0-10); Neutrophil 47 % (42-75); Platelet Morphology Comment Appears Adequate
[2022-07-15] MEDS: Amiodarone 450 MG in Dextrose 5% in Water 250 ML IVPB SCH ×2 (04:38→19:50)
[2022-07-15] MEDS: Sodium Bicarbonate 150 MEQ in Dextrose 5% in Water 850 ML IV SCH ×2 (05:45→18:34)
[2022-07-15] MEDS: Piperacillin/Tazobactam 3.375 GM in Sodium Chloride 0.9% 100 ML IVPB SCH ×3 (06:47→22:56)
[2022-07-15] MEDS: Mometasone 100 MCG/Formoterol 5 MCG 120 PUFF INHALER INH SCH ×2 (07:09→19:08)
[2022-07-15] MEDS: Aspirin Chewable 81 MG TAB PO SCH (09:58)
[2022-07-15] MEDS: Amlodipine 10 MG TAB PO SCH (09:58)
[2022-07-15] MEDS: Cholecalciferol 1,000 UNITS (25 MCG) TAB PO SCH (09:59)
[2022-07-15] MEDS: Empagliflozin 10 MG TAB PO SCH (09:59)
[2022-07-15] MEDS: Cyanocobalamin (Vitamin B-12) 1,000 MCG TAB PO SCH (09:59)
[2022-07-15] MEDS: Leflunomide 10 mg Tablet PO SCH (09:59)
[2022-07-15] MEDS: Atorvastatin Calcium 20 MG TAB PO SCH (09:59)
[2022-07-15] MEDS: Magnesium Oxide 400 MG TAB PO SCH (09:59)
[2022-07-15] MEDS: Metoprolol Tartrate 25 MG TAB PO SCH ×2 (10:00→22:42)
[2022-07-15] MEDS: Ondansetron PF 4 MG/2 ML Vial IVP PRN ×2 (10:55→18:35)
[2022-07-15] MEDS: Morphine 2 MG/ML VIAL SLOW IVP PRN (11:13)
[2022-07-15] MEDS ORDERED: MD-Gastroview 120 ML BOT ONE (15:26)
[2022-07-15 19:27] LABS: Vancomycin, Random 15.9 ug/mL (See Comment)
[2022-07-15] MEDS ORDERED: Vancomycin HCl 500 MG in Sodium Chloride 0.9% 100 ML IV SCH (20:30)
[2022-07-16] MEDS: Ipratropium/Albuterol 3 ML NEB NEB SCH ×5 (01:00→23:25)
[2022-07-16] MEDS: Sodium Bicarbonate 150 MEQ in Dextrose 5% in Water 850 ML IV SCH (03:56)
[2022-07-16 04:08] LABS: Anion Gap 15 mmol/L (10-20); BUN (Urea Nitrogen) 38 mg/dL (8.4-25.7); Calc. Creatinine Clearance 24 mL/min (70-130); Carbon Dioxide 37 mmol/L (23-31); Chloride 97 mmol/L (98-107); Estimated GFR 24; Glucose 140 mg/dL (83-110); Sodium 147 mmol/L (136-145)
[2022-07-16 04:25] LABS: Potassium 2.4 mmol/L (3.5-5.1)
[2022-07-16] MEDS: Piperacillin/Tazobactam 3.375 GM in Sodium Chloride 0.9% 100 ML IVPB SCH ×3 (04:59→21:00)
[2022-07-16 05:00] LABS: Magnesium 1.6 mg/dL (1.6-2.6)
[2022-07-16] MEDS ORDERED: Potassium Chloride 20 MEQ TAB PO SCH (06:15)
[2022-07-16] MEDS ORDERED: Magnesium 2 GM/50 ML(in water) 2 GM in Premix Bag 1 BAG IVPB SCH (06:15)
[2022-07-16] MEDS: Mometasone 100 MCG/Formoterol 5 MCG 120 PUFF INHALER INH SCH ×2 (07:18→18:57)
[2022-07-16] MEDS: Potassium Chloride 40 MEQ in Sodium Chloride 0.9% 250 ML 250 ML IVPB SCH ×2 (07:30→11:22)
[2022-07-16] MEDS ORDERED: Potassium Chloride 40 MEQ, Magnesium Sulfate 4 GM in Sodium Chloride 0.9% 250 ML 250 ML IVPB SCH (08:45)
[2022-07-16] MEDS ORDERED: Magnesium Sulfate In Water 4 GM in Premix Bag 1 BAG IVPB SCH (08:45)
[2022-07-16] MEDS: Amlodipine 10 MG TAB PO SCH (09:43)
[2022-07-16] MEDS: Empagliflozin 10 MG TAB PO SCH (09:43)
[2022-07-16] MEDS: Atorvastatin Calcium 20 MG TAB PO SCH (09:43)
[2022-07-16] MEDS: Cholecalciferol 1,000 UNITS (25 MCG) TAB PO SCH (09:43)
[2022-07-16] MEDS: Leflunomide 10 mg Tablet PO SCH (09:43)
[2022-07-16] MEDS: Cyanocobalamin (Vitamin B-12) 1,000 MCG TAB PO SCH (09:43)
[2022-07-16] MEDS: Aspirin Chewable 81 MG TAB PO SCH (09:43)
[2022-07-16] MEDS: Magnesium Oxide 400 MG TAB PO SCH (09:43)
[2022-07-16] MEDS: Metoprolol Tartrate 25 MG TAB PO SCH ×2 (09:44→21:15)
[2022-07-16] MEDS: Pantoprazole 40 MG VIAL IVP SCH (10:21)
[2022-07-16] MEDS: Amiodarone 450 MG in Dextrose 5% in Water 250 ML IVPB SCH ×2 (11:20→22:09)
[2022-07-16] MEDS: 1/2 NS w/KCL 20 mEq 1,000 ML IV SCH ×2 (11:21→20:59)
[2022-07-16 19:42] LABS: Vancomycin, Random 17.7 ug/mL (See Comment)
[2022-07-16 19:44] LABS: BUN (Urea Nitrogen) 35 mg/dL (8.4-25.7); Calc. Creatinine Clearance 23 mL/min (70-130); Calcium 8.3 mg/dL (7.8-10.44); Estimated GFR 23; Glucose 131 mg/dL (83-110)
[2022-07-16 19:53] LABS: Anion Gap 21 mmol/L (10-20); Carbon Dioxide 35 mmol/L (23-31); Chloride 96 mmol/L (98-107); Potassium 2.8 mmol/L (3.5-5.1); Sodium 149 mmol/L (136-145)
[2022-07-16] MEDS ORDERED: Vancomycin HCl 500 MG in Sodium Chloride 0.9% 100 ML IV SCH (21:00)
[2022-07-17 04:55] LABS: Anisocytosis SLIGHT = 6-15 cells (100X) (0-5/hpf); Band 14 % (5-11); Hemoglobin 9.9 g/dL (14.0-18.0); Hypochromia SLIGHT = 6-15 cells (100X) (0-5/hpf); Lymphocytes 9 % (21-51); MDiff Complete? YES; Mean Corpuscular HGB CONC 31.8 g/dL (32.0-36.0); Mean Corpuscular Hemoglobin 27.3 pg (27.0-31.0); Mean Corpuscular Volume 85.8 fl (78.0-98.0); Mean Platelet Volume 8.8 fL (7.4-10.4); Metamyelocyte 1 % (0-0); Monocytes 11 % (0-10); Neutrophil 65 % (42-75); Platelet Count 191 10x3/uL (130-400); Platelet Morphology Comment Appears Adequate; Polychromasia SLIGHT = 2-3 cells (100X) (0-2/hpf); Red Blood Cell (RBC) Count 3.62 mill/uL (4.70-6.10); Target Cells SLIGHT = 2-5 cells (100X) (0-1/hpf); White Blood Cell (WBC) Count 18.9 10x3/uL (4.8-10.8)
[2022-07-17 04:58] LABS: BUN (Urea Nitrogen) 35 mg/dL (8.4-25.7); Calc. Creatinine Clearance 23 mL/min (70-130); Calcium 8.1 mg/dL (7.8-10.44); Cholesterol 60 mg/dl (< 200 Desired); Estimated GFR 23; Glucose 124 mg/dL (83-110); HDL Cholesterol 12 mg/dL (>60 Neg Risk); LDL Cholesterol, Calculated 22 mg/dL; Phosphorus 2.2 mg/dL (2.3-4.7); Triglycerides 132 mg/dL (Less than 150)
[2022-07-17 05:09] LABS: Anion Gap 22 mmol/L (10-20); Carbon Dioxide 32 mmol/L (23-31); Chloride 97 mmol/L (98-107); Sodium 148 mmol/L (136-145)
[2022-07-17 05:13] LABS: Potassium 2.5 mmol/L (3.5-5.1)
[2022-07-17 05:54] LABS: Magnesium 2.7 mg/dL (1.6-2.6)
[2022-07-17] MEDS: Piperacillin/Tazobactam 3.375 GM in Sodium Chloride 0.9% 100 ML IVPB SCH ×3 (05:59→21:12)
[2022-07-17] MEDS: Potassium Chloride 40 MEQ in Sodium Chloride 0.9% 250 ML 250 ML IVPB SCH ×2 (05:59→10:54)
[2022-07-17] MEDS: 1/2 NS w/KCL 20 mEq 1,000 ML IV SCH ×3 (05:59→17:50)
[2022-07-17] MEDS: Mometasone 100 MCG/Formoterol 5 MCG 120 PUFF INHALER INH SCH ×2 (07:48→18:52)
[2022-07-17] MEDS: Ipratropium/Albuterol 3 ML NEB NEB SCH ×4 (07:48→23:34)
[2022-07-17] MEDS: Amlodipine 10 MG TAB PO SCH (10:05)
[2022-07-17] MEDS: Aspirin Chewable 81 MG TAB PO SCH (10:06)
[2022-07-17] MEDS: Empagliflozin 10 MG TAB PO SCH (10:06)
[2022-07-17] MEDS: Atorvastatin Calcium 20 MG TAB PO SCH (10:06)
[2022-07-17] MEDS: Leflunomide 10 mg Tablet PO SCH (10:08)
[2022-07-17] MEDS: Metoprolol Tartrate 25 MG TAB PO SCH ×2 (10:09→21:12)
[2022-07-17] MEDS: Pantoprazole 40 MG VIAL IVP SCH (10:09)
[2022-07-17] MEDS: Cholecalciferol 1,000 UNITS (25 MCG) TAB PO SCH (10:16)
[2022-07-17] MEDS: Magnesium Oxide 400 MG TAB PO SCH (10:17)
[2022-07-17] MEDS: Cyanocobalamin (Vitamin B-12) 1,000 MCG TAB PO SCH (11:04)
[2022-07-17] MEDS: Acetaminophen 325 MG TAB PO PRN (17:12)
[2022-07-18] MEDS: 1/2 NS w/KCL 20 mEq 1,000 ML IV SCH ×3 (02:04→18:40)
[2022-07-18] MEDS: Piperacillin/Tazobactam 3.375 GM in Sodium Chloride 0.9% 100 ML IVPB SCH (06:39)
[2022-07-18] MEDS: Ipratropium/Albuterol 3 ML NEB NEB SCH ×4 (07:00→23:46)
[2022-07-18] MEDS: Mometasone 100 MCG/Formoterol 5 MCG 120 PUFF INHALER INH SCH ×2 (07:01→19:12)
[2022-07-18 07:22] LABS: Hemoglobin 9.9 g/dL (14.0-18.0); Mean Corpuscular HGB CONC 30.4 g/dL (32.0-36.0); Mean Corpuscular Hemoglobin 26.5 pg (27.0-31.0); Mean Corpuscular Volume 87.2 fl (78.0-98.0); Mean Platelet Volume 8.6 fL (7.4-10.4); Platelet Count 170 10x3/uL (130-400); RBC Distribution Width 15.9 % (11.5-14.5); Red Blood Cell (RBC) Count 3.74 mill/uL (4.70-6.10); White Blood Cell (WBC) Count 19.4 10x3/uL (4.8-10.8)
[2022-07-18 07:39] LABS: Anion Gap 20 mmol/L (10-20); BUN (Urea Nitrogen) 35 mg/dL (8.4-25.7); Calc. Creatinine Clearance 22 mL/min (70-130); Calcium 7.9 mg/dL (7.8-10.44); Carbon Dioxide 25 mmol/L (23-31); Chloride 102 mmol/L (98-107); Estimated GFR 23; Glucose 83 mg/dL (83-110); Potassium 3.3 mmol/L (3.5-5.1); Sodium 144 mmol/L (136-145)
[2022-07-18 08:22] LABS: Band 11 % (5-11); Eosinophils 6 % (0-10); Hypochromia SLIGHT = 6-15 cells (100X) (0-5/hpf); Lymphocytes 14 % (21-51); MDiff Complete? YES; Monocytes 5 % (0-10); Neutrophil 63 % (42-75); Platelet Morphology Comment Appears Adequate; Polychromasia SLIGHT = 2-3 cells (100X) (0-2/hpf); Reactive Lymphocytes 1 % (0-10)
[2022-07-18] MEDS ORDERED: Potassium Chloride 40 MEQ in Premix Bag 1 BAG IVPB SCH (09:15)
[2022-07-18] MEDS: Leflunomide 10 mg Tablet PO SCH (09:31)
[2022-07-18] MEDS: Empagliflozin 10 MG TAB PO SCH (09:31)
[2022-07-18] MEDS: Cholecalciferol 1,000 UNITS (25 MCG) TAB PO SCH (09:32)
[2022-07-18] MEDS: Cyanocobalamin (Vitamin B-12) 1,000 MCG TAB PO SCH (09:32)
[2022-07-18] MEDS: Aspirin Chewable 81 MG TAB PO SCH (09:32)
[2022-07-18] MEDS: Amlodipine 10 MG TAB PO SCH (09:32)
[2022-07-18] MEDS: Magnesium Oxide 400 MG TAB PO SCH ×2 (09:34→09:39)
[2022-07-18] MEDS: Atorvastatin Calcium 20 MG TAB PO SCH (09:34)
[2022-07-18] MEDS: Metoprolol Tartrate 25 MG TAB PO SCH ×2 (09:34→21:10)
[2022-07-18] MEDS: Pantoprazole 40 MG VIAL IVP SCH (09:35)
[2022-07-18] MEDS: Amiodarone 450 MG in Dextrose 5% in Water 250 ML IVPB SCH (11:23)
[2022-07-18] MEDS ORDERED: Erythromycin 250 MG in Sodium Chloride 0.9% 250 ML 250 ML IVPB SCH (12:00)
[2022-07-18] MEDS: Potassium Chloride 20 MEQ in Premix Bag 1 BAG IVPB SCH ×2 (12:53→15:48)
[2022-07-18] MEDS: Morphine 2 MG/ML VIAL SLOW IVP PRN (13:34)
[2022-07-18] MEDS: Ondansetron PF 4 MG/2 ML Vial IVP PRN (13:40)
[2022-07-18] MEDS: Amoxicillin/Potassium Clav 400 mg/5 ml Oral Suspension PO SCH (17:39)
[2022-07-19] MEDS ORDERED: Morphine 4 MG/ML VIAL SLOW IVP SCH (00:45)
[2022-07-19 03:59] LABS: Hemoglobin A1c 5.8 % (4.0-6.0)
[2022-07-19] MEDS: 1/2 NS w/KCL 20 mEq 1,000 ML IV SCH ×3 (04:04→12:16)
[2022-07-19] MEDS: Amiodarone 450 MG in Dextrose 5% in Water 250 ML IVPB SCH (04:04)
[2022-07-19 04:13] LABS: Anion Gap 17 mmol/L (10-20); Anisocytosis SLIGHT = 6-15 cells (100X) (0-5/hpf); BUN (Urea Nitrogen) 34 mg/dL (8.4-25.7); Band 12 % (5-11); Calc. Creatinine Clearance 20 mL/min (70-130); Calcium 7.6 mg/dL (7.8-10.44); Carbon Dioxide 24 mmol/L (23-31); Chloride 105 mmol/L (98-107); Eosinophils 3 % (0-10); Estimated GFR 21; Glucose 87 mg/dL (83-110); Hemoglobin 9.3 g/dL (14.0-18.0); Hypochromia SLIGHT = 6-15 cells (100X) (0-5/hpf); Lymphocytes 16 % (21-51); MDiff Complete? YES; Mean Corpuscular HGB CONC 31.4 g/dL (32.0-36.0); Mean Corpuscular Hemoglobin 27.2 pg (27.0-31.0); Mean Corpuscular Volume 86.6 fl (78.0-98.0); Mean Platelet Volume 8.7 fL (7.4-10.4); Neutrophil 69 % (42-75); Platelet Count 149 10x3/uL (130-400); Platelet Morphology Comment Appears Adequate; Potassium 3.6 mmol/L (3.5-5.1); Red Blood Cell (RBC) Count 3.43 mill/uL (4.70-6.10); Sodium 142 mmol/L (136-145); White Blood Cell (WBC) Count 15.8 10x3/uL (4.8-10.8)
[2022-07-19] MEDS: Ipratropium/Albuterol 3 ML NEB NEB SCH ×3 (07:56→19:39)
[2022-07-19] MEDS: Amlodipine 10 MG TAB PO SCH (09:31)
[2022-07-19] MEDS: Amiodarone 200 MG TAB PO SCH ×2 (09:31→22:20)
[2022-07-19] MEDS: Atorvastatin Calcium 20 MG TAB PO SCH (09:32)
[2022-07-19] MEDS: Apixaban 2.5 MG TAB PO SCH ×2 (09:32→22:21)
[2022-07-19] MEDS: Aspirin Chewable 81 MG TAB PO SCH (09:32)
[2022-07-19] MEDS: Cyanocobalamin (Vitamin B-12) 1,000 MCG TAB PO SCH (09:33)
[2022-07-19] MEDS: Cholecalciferol 1,000 UNITS (25 MCG) TAB PO SCH (09:33)
[2022-07-19] MEDS: Leflunomide 10 mg Tablet PO SCH (09:34)
[2022-07-19] MEDS: Empagliflozin 10 MG TAB PO SCH (09:34)
[2022-07-19] MEDS: Magnesium Oxide 400 MG TAB PO SCH (09:35)
[2022-07-19] MEDS: Metoprolol Tartrate 25 MG TAB PO SCH ×2 (09:35→22:21)
[2022-07-19] MEDS: Amoxicillin/Potassium Clav 400 mg/5 ml Oral Suspension PO SCH ×2 (09:56→17:15)
[2022-07-19] MEDS: Albumin 25% 25 GM/100 ML BOT IVPB SCH ×2 (12:03→18:54)
[2022-07-19] MEDS: Mometasone 100 MCG/Formoterol 5 MCG 120 PUFF INHALER INH SCH ×2 (19:40→22:21)
[2022-07-19] MEDS: Acetaminophen 325 MG TAB PO PRN (22:19)
[2022-07-19] MEDS: Ondansetron PF 4 MG/2 ML Vial IVP PRN (22:53)
[2022-07-20] MEDS: Amiodarone 200 MG TAB PO SCH ×3 (00:58→21:04)
[2022-07-20] MEDS: Apixaban 2.5 MG TAB PO SCH ×2 (00:58→11:15)
[2022-07-20] MEDS: Metoprolol Tartrate 25 MG TAB PO SCH ×3 (00:59→21:02)
[2022-07-20] MEDS: Ipratropium/Albuterol 3 ML NEB NEB SCH ×4 (01:38→19:34)
[2022-07-20] MEDS: Albumin 25% 25 GM/100 ML BOT IVPB SCH ×4 (02:00→16:55)
[2022-07-20] MEDS: 1/2 NS w/KCL 20 mEq 1,000 ML IV SCH ×2 (02:00→11:15)
[2022-07-20 04:49] LABS: Hemoglobin 7.7 g/dL (14.0-18.0); Mean Corpuscular HGB CONC 32.8 g/dL (32.0-36.0); Mean Corpuscular Hemoglobin 28.1 pg (27.0-31.0); Mean Corpuscular Volume 85.8 fl (78.0-98.0); Platelet Count 127 10x3/uL (130-400); RBC Distribution Width 15.8 % (11.5-14.5); Red Blood Cell (RBC) Count 2.74 mill/uL (4.70-6.10); White Blood Cell (WBC) Count 14.2 10x3/uL (4.8-10.8)
[2022-07-20 05:08] LABS: Anion Gap 18 mmol/L (10-20); BUN (Urea Nitrogen) 36 mg/dL (8.4-25.7); Calc. Creatinine Clearance 18 mL/min (70-130); Carbon Dioxide 21 mmol/L (23-31); Chloride 106 mmol/L (98-107); Estimated GFR 19; Glucose 76 mg/dL (83-110); Magnesium 1.7 mg/dL (1.6-2.6); Potassium 3.5 mmol/L (3.5-5.1); Sodium 141 mmol/L (136-145)
[2022-07-20 05:12] LABS: Phosphorus 2.9 mg/dL (2.3-4.7)
[2022-07-20 05:28] LABS: Band 24 % (5-11); Eosinophils 3 % (0-10); Lymphocytes 15 % (21-51); MDiff Complete? YES; Monocytes 8 % (0-10); Myelocyte 1 % (0-0); Neutrophil 49 % (42-75)
[2022-07-20] MEDS: HYDROcodone/Acetaminophen 5/325 mg Tablet PO PRN ×2 (09:20→15:35)
[2022-07-20] MEDS: Amlodipine 10 MG TAB PO SCH (10:21)
[2022-07-20] MEDS: Leflunomide 10 mg Tablet PO SCH (10:21)
[2022-07-20] MEDS: Atorvastatin Calcium 20 MG TAB PO SCH (10:21)
[2022-07-20] MEDS: Cyanocobalamin (Vitamin B-12) 1,000 MCG TAB PO SCH (10:22)
[2022-07-20] MEDS: Aspirin Chewable 81 MG TAB PO SCH (10:22)
[2022-07-20] MEDS: Magnesium Oxide 400 MG TAB PO SCH (10:22)
[2022-07-20] MEDS: Cholecalciferol 1,000 UNITS (25 MCG) TAB PO SCH (10:22)
[2022-07-20] MEDS: Empagliflozin 10 MG TAB PO SCH (10:23)
[2022-07-20] MEDS: Amoxicillin/Potassium Clav 400 mg/5 ml Oral Suspension PO SCH ×2 (10:23→17:15)
[2022-07-20] MEDS: Mometasone 100 MCG/Formoterol 5 MCG 120 PUFF INHALER INH SCH ×2 (10:33→19:38)
[2022-07-20] MEDS: NS 0.9% w/ 20 MEQ KCL 1,000 ML/1,000 ML BAG IV SCH ×2 (11:16→21:00)
[2022-07-20] MEDS ORDERED: Albumin 25% 25 GM/100 ML BOT IVPB SCH (12:00)
[2022-07-21] MEDS: Albumin 25% 25 GM/100 ML BOT IVPB SCH ×3 (00:22→19:17)
[2022-07-21] MEDS: Ipratropium/Albuterol 3 ML NEB NEB SCH ×5 (01:13→22:17)
[2022-07-21 05:08] LABS: Hemoglobin 7.7 g/dL (14.0-18.0); Mean Corpuscular HGB CONC 31.3 g/dL (32.0-36.0); Mean Corpuscular Volume 86.3 fl (78.0-98.0); Mean Platelet Volume 8.8 fL (7.4-10.4); Platelet Count 157 10x3/uL (130-400); RBC Distribution Width 15.9 % (11.5-14.5); Red Blood Cell (RBC) Count 2.84 mill/uL (4.70-6.10); White Blood Cell (WBC) Count 13.3 10x3/uL (4.8-10.8)
[2022-07-21] MEDS: NS 0.9% w/ 20 MEQ KCL 1,000 ML/1,000 ML BAG IV SCH (05:19)
[2022-07-21 05:34] LABS: Phosphorus 2.9 mg/dL (2.3-4.7)
[2022-07-21 05:35] LABS: Anion Gap 21 mmol/L (10-20); BUN (Urea Nitrogen) 39 mg/dL (8.4-25.7); Calc. Creatinine Clearance 16 mL/min (70-130); Calcium 8.4 mg/dL (7.8-10.44); Carbon Dioxide 17 mmol/L (23-31); Chloride 110 mmol/L (98-107); Estimated GFR 15; Glucose 75 mg/dL (83-110); Magnesium 1.7 mg/dL (1.6-2.6); Potassium 3.8 mmol/L (3.5-5.1); Sodium 144 mmol/L (136-145)
[2022-07-21 05:56] LABS: Anisocytosis SLIGHT = 6-15 cells (100X) (0-5/hpf); Band 6 % (5-11); Eosinophils 6 % (0-10); Hypochromia SLIGHT = 6-15 cells (100X) (0-5/hpf); Lymphocytes 10 % (21-51); MDiff Complete? YES; Monocytes 7 % (0-10); Neutrophil 71 % (42-75); Platelet Morphology Comment Appears Adequate; Polychromasia SLIGHT = 2-3 cells (100X) (0-2/hpf)
[2022-07-21] MEDS ORDERED: Sodium Bicarbonate 150 MEQ in Dextrose 5% in Water 1,000 ML IV SCH (08:00)
[2022-07-21] MEDS: Mometasone 100 MCG/Formoterol 5 MCG 120 PUFF INHALER INH SCH ×2 (08:15→18:50)
[2022-07-21 09:39] LABS: Iron 11 ug/dL (65-175); Iron Binding Capacity, Total 96 mcg/dL (261-462)
[2022-07-21] MEDS: Aspirin Chewable 81 MG TAB PO SCH (09:57)
[2022-07-21] MEDS: Metoprolol Tartrate 25 MG TAB PO SCH ×2 (09:57→21:35)
[2022-07-21] MEDS: Magnesium Oxide 400 MG TAB PO SCH ×2 (09:57→21:35)
[2022-07-21] MEDS: Cholecalciferol 1,000 UNITS (25 MCG) TAB PO SCH (09:57)
[2022-07-21] MEDS: Atorvastatin Calcium 20 MG TAB PO SCH (09:57)
[2022-07-21] MEDS: Amlodipine 10 MG TAB PO SCH (09:57)
[2022-07-21] MEDS: Amiodarone 200 MG TAB PO SCH ×2 (09:58→21:35)
[2022-07-21] MEDS: Leflunomide 10 mg Tablet PO SCH (09:58)
[2022-07-21] MEDS: Cyanocobalamin (Vitamin B-12) 1,000 MCG TAB PO SCH (09:58)
[2022-07-21] MEDS: Amoxicillin/Potassium Clav 500 MG TAB PO SCH ×2 (09:58→15:59)
[2022-07-21] MEDS ORDERED: Iron, Sodium Ferric Gluconate 250 MG in Sodium Chloride 0.9% 250 ML 250 ML IVPB SCH (14:15)
[2022-07-21] MEDS: Sodium Bicarbonate 150 MEQ in Dextrose 5% in Water 1,000 ML IV SCH ×2 (16:25→23:56)
[2022-07-22] MEDS: Albumin 25% 25 GM/100 ML BOT IVPB SCH ×3 (00:02→12:31)
[2022-07-22 05:03] LABS: Hemoglobin 7.5 g/dL (14.0-18.0); Mean Corpuscular HGB CONC 33.7 g/dL (32.0-36.0); Mean Corpuscular Hemoglobin 27.8 pg (27.0-31.0); Mean Corpuscular Volume 82.6 fl (78.0-98.0); Mean Platelet Volume 9.3 fL (7.4-10.4); Platelet Count 162 10x3/uL (130-400); RBC Distribution Width 15.7 % (11.5-14.5); Red Blood Cell (RBC) Count 2.71 mill/uL (4.70-6.10); White Blood Cell (WBC) Count 14.8 10x3/uL (4.8-10.8)
[2022-07-22 05:39] LABS: Albumin 4.4 g/dL (3.4-4.8); Anion Gap 18 mmol/L (10-20); BUN (Urea Nitrogen) 37 mg/dL (8.4-25.7); BUN/Creatinine Ratio 9.37; Calc. Creatinine Clearance 15 mL/min (70-130); Calcium 8.3 mg/dL (7.8-10.44); Carbon Dioxide 28 mmol/L (23-31); Chloride 97 mmol/L (98-107); Estimated GFR 14; Glucose 170 mg/dL (83-110); Phosphorus 2.1 mg/dL (2.3-4.7); Potassium 2.5 mmol/L (3.5-5.1); Sodium 140 mmol/L (136-145)
[2022-07-22] MEDS ORDERED: Potassium Chloride 20 MEQ TAB PO SCH ×3 (06:00→18:30)
[2022-07-22] MEDS: Sodium Bicarbonate 150 MEQ in Dextrose 5% in Water 1,000 ML IV SCH ×3 (06:10→14:58)
[2022-07-22] MEDS ORDERED: Potassium Phosphate 30 MMOL in Sodium Chloride 0.9% 250 ML 250 ML IVPB SCH (07:15)
[2022-07-22] MEDS: Mometasone 100 MCG/Formoterol 5 MCG 120 PUFF INHALER INH SCH ×2 (07:29→18:47)
[2022-07-22] MEDS: Ipratropium/Albuterol 3 ML NEB NEB SCH ×4 (07:29→21:52)
[2022-07-22 08:08] LABS: CK (CPK) 67 U/L (30-200); Magnesium 1.5 mg/dL (1.6-2.6)
[2022-07-22] MEDS: Ondansetron PF 4 MG/2 ML Vial IVP PRN (09:57)
[2022-07-22] MEDS: Cholecalciferol 1,000 UNITS (25 MCG) TAB PO SCH (10:53)
[2022-07-22] MEDS: Leflunomide 10 mg Tablet PO SCH (10:53)
[2022-07-22] MEDS: Amlodipine 10 MG TAB PO SCH (10:53)
[2022-07-22] MEDS: Amiodarone 200 MG TAB PO SCH ×2 (10:54→20:04)
[2022-07-22] MEDS: Aspirin Chewable 81 MG TAB PO SCH (10:54)
[2022-07-22] MEDS: Cyanocobalamin (Vitamin B-12) 1,000 MCG TAB PO SCH (10:54)
[2022-07-22] MEDS: Metoprolol Tartrate 25 MG TAB PO SCH ×2 (10:54→20:04)
[2022-07-22] MEDS: Atorvastatin Calcium 20 MG TAB PO SCH (10:55)
[2022-07-22] MEDS: Amoxicillin/Potassium Clav 500 MG TAB PO SCH ×2 (10:55→18:18)
[2022-07-22] MEDS: Magnesium Oxide 400 MG TAB PO SCH (10:55)
[2022-07-22] MEDS ORDERED: Magnesium Sulfate In Water 4 GM in Premix Bag 1 BAG IVPB SCH (13:30)
[2022-07-22] MEDS ORDERED: Magnesium Sulfate 20 GM/WATER 500 ML BAG IVPB SCH (13:30)
[2022-07-22] MEDS ORDERED: Dextrose 5%-Lactated Ringers 1,000 ML IV SCH (13:30)
[2022-07-22] MEDS ORDERED: Iron, Sodium Ferric Gluconate 250 MG in Sodium Chloride 0.9% 250 ML 250 ML IVPB SCH ×2 (14:00)
[2022-07-22] MEDS ORDERED: EPOETIN ALFA-EPBX (ESRD) 10,000 UNIT/ML VIAL SC SCH (14:00)
[2022-07-22 14:30] LABS: Albumin 4.5 g/dL (3.4-4.8); Anion Gap 21 mmol/L (10-20); BUN (Urea Nitrogen) 36 mg/dL (8.4-25.7); BUN/Creatinine Ratio 8.45; Calc. Creatinine Clearance 14 mL/min (70-130); Calcium 8.3 mg/dL (7.8-10.44); Carbon Dioxide 33 mmol/L (23-31); Chloride 91 mmol/L (98-107); Estimated GFR 13; Glucose 140 mg/dL (83-110); Phosphorus 3.1 mg/dL (2.3-4.7); Potassium 2.9 mmol/L (3.5-5.1); Sodium 142 mmol/L (136-145)
[2022-07-22] MEDS: Dextrose 5%-Lactated Ringers 1,000 ML IV SCH ×2 (15:01→20:03)
[2022-07-22] MEDS: Cholestyramine/Aspartame 4 gm Packet PO SCH ×2 (15:01→20:41)
[2022-07-22 15:17] LABS: Anion Gap 22 mmol/L (10-20); Carbon Dioxide 25 mmol/L (23-31); Chloride 97 mmol/L (98-107); Potassium 2.8 mmol/L (3.5-5.1); Sodium 141 mmol/L (136-145)
[2022-07-23] MEDS: Dextrose 5%-Lactated Ringers 1,000 ML IV SCH ×6 (01:00→22:05)
[2022-07-23 04:33] LABS: Hemoglobin 7.3 g/dL (14.0-18.0); Mean Corpuscular HGB CONC 31.9 g/dL (32.0-36.0); Mean Corpuscular Hemoglobin 26.9 pg (27.0-31.0); Mean Corpuscular Volume 84.3 fl (78.0-98.0); Mean Platelet Volume 9.8 fL (7.4-10.4); Platelet Count 184 10x3/uL (130-400); RBC Distribution Width 15.8 % (11.5-14.5); Red Blood Cell (RBC) Count 2.73 mill/uL (4.70-6.10); White Blood Cell (WBC) Count 12.4 10x3/uL (4.8-10.8)
[2022-07-23 05:19] LABS: Anion Gap 21 mmol/L (10-20); BUN (Urea Nitrogen) 39 mg/dL (8.4-25.7); Calc. Creatinine Clearance 13 mL/min (70-130); Calcium 8.4 mg/dL (7.8-10.44); Carbon Dioxide 29 mmol/L (23-31); Chloride 95 mmol/L (98-107); Estimated GFR 12; Glucose 170 mg/dL (83-110); Magnesium 2.3 mg/dL (1.6-2.6); Potassium 3.7 mmol/L (3.5-5.1); Sodium 141 mmol/L (136-145)
[2022-07-23] MEDS: Ipratropium/Albuterol 3 ML NEB NEB SCH ×2 (08:00→14:28)
[2022-07-23] MEDS: Mometasone 100 MCG/Formoterol 5 MCG 120 PUFF INHALER INH SCH ×2 (08:01→18:50)
[2022-07-23] MEDS: Amoxicillin/Potassium Clav 500 MG TAB PO SCH ×2 (08:43→17:39)
[2022-07-23] MEDS: Amiodarone 200 MG TAB PO SCH ×2 (08:43→20:54)
[2022-07-23] MEDS: Aspirin Chewable 81 MG TAB PO SCH (08:46)
[2022-07-23] MEDS: Atorvastatin Calcium 20 MG TAB PO SCH ×2 (08:46→20:55)
[2022-07-23] MEDS: Leflunomide 10 mg Tablet PO SCH (08:47)
[2022-07-23] MEDS: Amlodipine 10 MG TAB PO SCH (08:49)
[2022-07-23] MEDS: Cholecalciferol 1,000 UNITS (25 MCG) TAB PO SCH (08:49)
[2022-07-23] MEDS: Metoprolol Tartrate 25 MG TAB PO SCH ×2 (08:50→20:55)
[2022-07-23] MEDS: Cyanocobalamin (Vitamin B-12) 1,000 MCG TAB PO SCH (08:50)
[2022-07-23] MEDS: Acetaminophen 325 MG TAB PO PRN (10:14)
[2022-07-23] MEDS: Cholestyramine/Aspartame 4 gm Packet PO SCH ×3 (11:47→20:39)
[2022-07-23] MEDS ORDERED: Ipratropium/Albuterol 3 ML NEB NEB PRN (17:30)
[2022-07-23] MEDS: Iron, Sodium Ferric Gluconate 250 MG in Sodium Chloride 0.9% 250 ML 250 ML IVPB SCH (18:36)
[2022-07-23 19:16] LABS: Anion Gap 21 mmol/L (10-20); BUN (Urea Nitrogen) 42 mg/dL (8.4-25.7); Calc. Creatinine Clearance 13 mL/min (70-130); Calcium 8.3 mg/dL (7.8-10.44); Carbon Dioxide 25 mmol/L (23-31); Chloride 97 mmol/L (98-107); Estimated GFR 11; Glucose 116 mg/dL (83-110); Potassium 3.9 mmol/L (3.5-5.1); Sodium 139 mmol/L (136-145)
[2022-07-24] MEDS: Dextrose 5%-Lactated Ringers 1,000 ML IV SCH ×6 (03:32→22:26)
[2022-07-24 06:08] LABS: #Basophils 0.1 thou/uL (0.0-0.2); #Eosinphils 0.5 thou/uL (0.0-0.7); #Lymphocytes 1.9 thou/uL (1.20-3.40); #Monocytes 1.4 thou/uL (0.11-0.59); #Neutrophils 9.4 thou/uL (1.40-6.50); %Basophils 0.5 % (0.0-1.0); %Lymphocytes 14.1 % (21.0-51.0); %Monocytes 10.4 % (0.0-10.0); %Neutrophils 71.1 % (42.0-75.0); Hemoglobin 7.3 g/dL (14.0-18.0); Mean Corpuscular HGB CONC 32.5 g/dL (32.0-36.0); Mean Corpuscular Hemoglobin 27.6 pg (27.0-31.0); Mean Corpuscular Volume 84.8 fl (78.0-98.0); Mean Platelet Volume 9.1 fL (7.4-10.4); Platelet Count 225 10x3/uL (130-400); RBC Distribution Width 15.6 % (11.5-14.5); Red Blood Cell (RBC) Count 2.64 mill/uL (4.70-6.10); White Blood Cell (WBC) Count 13.2 10x3/uL (4.8-10.8)
[2022-07-24 06:36] LABS: Anion Gap 17 mmol/L (10-20); BUN (Urea Nitrogen) 44 mg/dL (8.4-25.7); Calc. Creatinine Clearance 13 mL/min (70-130); Calcium 8.3 mg/dL (7.8-10.44); Carbon Dioxide 28 mmol/L (23-31); Chloride 99 mmol/L (98-107); Estimated GFR 12; Glucose 109 mg/dL (83-110); Magnesium 1.9 mg/dL (1.6-2.6); Potassium 3.3 mmol/L (3.5-5.1); Sodium 141 mmol/L (136-145)
[2022-07-24] MEDS: Mometasone 100 MCG/Formoterol 5 MCG 120 PUFF INHALER INH SCH ×2 (07:11→18:32)
[2022-07-24] MEDS: Amoxicillin/Potassium Clav 500 MG TAB PO SCH ×2 (09:24→18:20)
[2022-07-24] MEDS: Amlodipine 10 MG TAB PO SCH (09:24)
[2022-07-24] MEDS: Cholestyramine/Aspartame 4 gm Packet PO SCH ×3 (09:24→20:36)
[2022-07-24] MEDS: Cyanocobalamin (Vitamin B-12) 1,000 MCG TAB PO SCH (09:25)
[2022-07-24] MEDS: Amiodarone 200 MG TAB PO SCH ×2 (09:25→20:49)
[2022-07-24] MEDS: Aspirin Chewable 81 MG TAB PO SCH (09:25)
[2022-07-24] MEDS: Metoprolol Tartrate 25 MG TAB PO SCH ×2 (09:25→20:43)
[2022-07-24] MEDS: Cholecalciferol 1,000 UNITS (25 MCG) TAB PO SCH (09:25)
[2022-07-24] MEDS: Leflunomide 10 mg Tablet PO SCH (09:25)
[2022-07-24] MEDS: Iron, Sodium Ferric Gluconate 250 MG in Sodium Chloride 0.9% 250 ML 250 ML IVPB SCH (15:47)
[2022-07-24] MEDS: Atorvastatin Calcium 20 MG TAB PO SCH (20:49)
[2022-07-25] MEDS: Dextrose 5%-Lactated Ringers 1,000 ML IV SCH ×6 (03:43→23:32)
[2022-07-25] MEDS: Mometasone 100 MCG/Formoterol 5 MCG 120 PUFF INHALER INH SCH ×2 (06:37→18:48)
[2022-07-25 07:30] LABS: Hemoglobin 7.3 g/dL (14.0-18.0); Mean Corpuscular HGB CONC 30.6 g/dL (32.0-36.0); Mean Corpuscular Hemoglobin 26.2 pg (27.0-31.0); Mean Corpuscular Volume 85.6 fl (78.0-98.0); Mean Platelet Volume 8.3 fL (7.4-10.4); Platelet Count 257 10x3/uL (130-400); RBC Distribution Width 15.7 % (11.5-14.5); Red Blood Cell (RBC) Count 2.77 mill/uL (4.70-6.10); White Blood Cell (WBC) Count 11.4 10x3/uL (4.8-10.8)
[2022-07-25 07:35] LABS: Anion Gap 14 mmol/L (10-20); BUN (Urea Nitrogen) 45 mg/dL (8.4-25.7); Calc. Creatinine Clearance 14 mL/min (70-130); Calcium 8.1 mg/dL (7.8-10.44); Carbon Dioxide 28 mmol/L (23-31); Chloride 100 mmol/L (98-107); Estimated GFR 13; Glucose 121 mg/dL (83-110); Magnesium 1.5 mg/dL (1.6-2.6); Potassium 2.8 mmol/L (3.5-5.1); Sodium 139 mmol/L (136-145)
[2022-07-25] MEDS ORDERED: Potassium Chloride 20 MEQ TAB PO SCH (08:00)
[2022-07-25 08:20] LABS: Band 6 % (5-11); Eosinophils 7 % (0-10); Hypochromia SLIGHT = 6-15 cells (100X) (0-5/hpf); Lymphocytes 15 % (21-51); MDiff Complete? YES; Monocytes 12 % (0-10); Neutrophil 59 % (42-75); Platelet Morphology Comment Appears Adequate; Polychromasia SLIGHT = 2-3 cells (100X) (0-2/hpf); Reactive Lymphocytes 1 % (0-10)
[2022-07-25] MEDS: Amoxicillin/Potassium Clav 500 MG TAB PO SCH (08:44)
[2022-07-25] MEDS: Cholecalciferol 1,000 UNITS (25 MCG) TAB PO SCH (08:45)
[2022-07-25] MEDS: Amiodarone 200 MG TAB PO SCH ×2 (08:45→21:15)
[2022-07-25] MEDS: Aspirin Chewable 81 MG TAB PO SCH (08:46)
[2022-07-25] MEDS: Leflunomide 10 mg Tablet PO SCH (08:46)
[2022-07-25] MEDS: Cholestyramine/Aspartame 4 gm Packet PO SCH ×3 (08:47→21:16)
[2022-07-25] MEDS: Cyanocobalamin (Vitamin B-12) 1,000 MCG TAB PO SCH (08:47)
[2022-07-25] MEDS: Metoprolol Tartrate 25 MG TAB PO SCH ×2 (08:47→21:15)
[2022-07-25] MEDS ORDERED: Magnesium Sulfate 4 GM in Sodium Chloride 0.9% 250 ML 250 ML IVPB SCH (09:00)
[2022-07-25] MEDS ORDERED: Loperamide HCl 2 MG CAP PO SCH (09:15)
[2022-07-25] MEDS ORDERED: Magnesium Sulfate In Water 4 GM in Premix Bag 1 BAG IVPB SCH (10:00)
[2022-07-25] MEDS: Albumin 25% 25 GM/100 ML BOT IVPB SCH ×3 (11:53→23:25)
[2022-07-25] MEDS: Loperamide HCl 2 MG CAP PO SCH ×3 (11:53→23:25)
[2022-07-25] MEDS: HYDROcodone/Acetaminophen 5/325 mg Tablet PO PRN (13:48)
[2022-07-25] MEDS ORDERED: Benzocaine 20% Spray 60 ML CAN FS PRN (15:00)
[2022-07-25] MEDS: Atorvastatin Calcium 20 MG TAB PO SCH (21:15)
[2022-07-26] MEDS: Dextrose 5%-Lactated Ringers 1,000 ML IV SCH ×6 (04:01→23:15)
[2022-07-26] MEDS: Albumin 25% 25 GM/100 ML BOT IVPB SCH (05:39)
[2022-07-26] MEDS: Loperamide HCl 2 MG CAP PO SCH ×4 (05:40→23:36)
[2022-07-26] MEDS: Mometasone 100 MCG/Formoterol 5 MCG 120 PUFF INHALER INH SCH ×2 (07:14→19:26)
[2022-07-26 07:44] LABS: Hemoglobin 6.6 g/dL (14.0-18.0); Mean Corpuscular HGB CONC 31.4 g/dL (32.0-36.0); Mean Corpuscular Hemoglobin 26.9 pg (27.0-31.0); Mean Corpuscular Volume 85.7 fl (78.0-98.0); Mean Platelet Volume 8.7 fL (7.4-10.4); Platelet Count 244 10x3/uL (130-400); RBC Distribution Width 15.9 % (11.5-14.5); Red Blood Cell (RBC) Count 2.46 mill/uL (4.70-6.10); White Blood Cell (WBC) Count 8.6 10x3/uL (4.8-10.8)
[2022-07-26 07:47] LABS: Anion Gap 15 mmol/L (10-20); BUN (Urea Nitrogen) 49 mg/dL (8.4-25.7); Calc. Creatinine Clearance 17 mL/min (70-130); Calcium 8.4 mg/dL (7.8-10.44); Carbon Dioxide 25 mmol/L (23-31); Chloride 102 mmol/L (98-107); Estimated GFR 15; Glucose 116 mg/dL (83-110); Potassium 3.3 mmol/L (3.5-5.1); Sodium 139 mmol/L (136-145)
[2022-07-26] MEDS ORDERED: Potassium Chloride 20 MEQ TAB PO SCH (08:00)
[2022-07-26 08:44] LABS: Band 10 % (5-11); Eosinophils 8 % (0-10); Hypochromia SLIGHT = 6-15 cells (100X) (0-5/hpf); Lymphocytes 15 % (21-51); MDiff Complete? YES; Monocytes 9 % (0-10); Neutrophil 58 % (42-75); Platelet Morphology Comment Appears Adequate; Polychromasia SLIGHT = 2-3 cells (100X) (0-2/hpf)
[2022-07-26] MEDS: Cholestyramine/Aspartame 4 gm Packet PO SCH ×3 (10:08→20:40)
[2022-07-26] MEDS: Leflunomide 10 mg Tablet PO SCH (10:08)
[2022-07-26] MEDS: Cyanocobalamin (Vitamin B-12) 1,000 MCG TAB PO SCH (10:09)
[2022-07-26] MEDS: Amiodarone 200 MG TAB PO SCH ×2 (10:09→20:39)
[2022-07-26] MEDS: Cholecalciferol 1,000 UNITS (25 MCG) TAB PO SCH (10:09)
[2022-07-26] MEDS: Aspirin Chewable 81 MG TAB PO SCH (10:09)
[2022-07-26] MEDS: Metoprolol Tartrate 25 MG TAB PO SCH ×2 (10:09→20:39)
[2022-07-26] MEDS: EPOETIN ALFA-EPBX (ESRD) 10,000 UNIT/ML VIAL SC SCH (10:10)
[2022-07-26] MEDS: Atorvastatin Calcium 20 MG TAB PO SCH (20:39)
[2022-07-27] MEDS: Dextrose 5%-Lactated Ringers 1,000 ML IV SCH ×3 (04:14→15:27)
[2022-07-27] MEDS: Loperamide HCl 2 MG CAP PO SCH ×4 (06:37→23:38)
[2022-07-27 06:44] LABS: #Basophils 0.1 thou/uL (0.0-0.2); #Eosinphils 0.4 thou/uL (0.0-0.7); #Lymphocytes 1.9 thou/uL (1.20-3.40); #Monocytes 1.2 thou/uL (0.11-0.59); #Neutrophils 7.1 thou/uL (1.40-6.50); %Basophils 0.7 % (0.0-1.0); %Eosinophils 3.8 % (0.0-10.0); %Lymphocytes 18.1 % (21.0-51.0); %Monocytes 11.4 % (0.0-10.0); Hemoglobin 8.2 g/dL (14.0-18.0); Mean Corpuscular HGB CONC 32.8 g/dL (32.0-36.0); Mean Corpuscular Hemoglobin 28.1 pg (27.0-31.0); Mean Corpuscular Volume 85.7 fl (78.0-98.0); Mean Platelet Volume 8.4 fL (7.4-10.4); Platelet Count 254 10x3/uL (130-400); RBC Distribution Width 15.7 % (11.5-14.5); White Blood Cell (WBC) Count 10.8 10x3/uL (4.8-10.8)
[2022-07-27 06:56] LABS: Anion Gap 14 mmol/L (10-20); BUN (Urea Nitrogen) 42 mg/dL (8.4-25.7); Calc. Creatinine Clearance 18 mL/min (70-130); Calcium 8.6 mg/dL (7.8-10.44); Carbon Dioxide 25 mmol/L (23-31); Chloride 103 mmol/L (98-107); Estimated GFR 15; Glucose 94 mg/dL (83-110); Potassium 3.8 mmol/L (3.5-5.1); Sodium 138 mmol/L (136-145)
[2022-07-27] MEDS: Mometasone 100 MCG/Formoterol 5 MCG 120 PUFF INHALER INH SCH ×2 (08:21→18:50)
[2022-07-27] MEDS: Cholestyramine/Aspartame 4 gm Packet PO SCH ×4 (09:00→20:19)
[2022-07-27] MEDS: HYDROcodone/Acetaminophen 5/325 mg Tablet PO PRN (09:03)
[2022-07-27] MEDS: Leflunomide 10 mg Tablet PO SCH (09:04)
[2022-07-27] MEDS: Amiodarone 200 MG TAB PO SCH ×2 (09:04→20:19)
[2022-07-27] MEDS: Cholecalciferol 1,000 UNITS (25 MCG) TAB PO SCH (09:04)
[2022-07-27] MEDS: Aspirin Chewable 81 MG TAB PO SCH (09:05)
[2022-07-27] MEDS: Cyanocobalamin (Vitamin B-12) 1,000 MCG TAB PO SCH (09:05)
[2022-07-27] MEDS: Metoprolol Tartrate 25 MG TAB PO SCH ×2 (09:05→20:19)
[2022-07-27] MEDS ORDERED: Morphine 2 MG/ML VIAL SLOW IVP SCH (09:30)
[2022-07-27] MEDS: Atorvastatin Calcium 20 MG TAB PO SCH (20:19)
[2022-07-27] MEDS: Acetaminophen 325 MG TAB PO PRN (20:21)
[2022-07-28] MEDS: Loperamide HCl 2 MG CAP PO SCH ×4 (06:04→23:28)
[2022-07-28] MEDS: Mometasone 100 MCG/Formoterol 5 MCG 120 PUFF INHALER INH SCH ×2 (07:01→18:43)
[2022-07-28 08:06] LABS: Anion Gap 15 mmol/L (10-20); BUN (Urea Nitrogen) 46 mg/dL (8.4-25.7); Calc. Creatinine Clearance 20 mL/min (70-130); Calcium 8.2 mg/dL (7.8-10.44); Carbon Dioxide 21 mmol/L (23-31); Chloride 106 mmol/L (98-107); Estimated GFR 17; Glucose 77 mg/dL (83-110); Sodium 138 mmol/L (136-145)
[2022-07-28 08:09] LABS: Mean Corpuscular HGB CONC 31.4 g/dL (32.0-36.0); Mean Corpuscular Hemoglobin 27.4 pg (27.0-31.0); Mean Corpuscular Volume 87.4 fl (78.0-98.0); Mean Platelet Volume 8.6 fL (7.4-10.4); Platelet Count 293 10x3/uL (130-400); RBC Distribution Width 16.3 % (11.5-14.5); Red Blood Cell (RBC) Count 2.91 mill/uL (4.70-6.10); White Blood Cell (WBC) Count 9.4 10x3/uL (4.8-10.8)
[2022-07-28] MEDS: Amiodarone 200 MG TAB PO SCH ×2 (09:23→21:07)
[2022-07-28] MEDS: Metoprolol Tartrate 25 MG TAB PO SCH ×2 (09:23→21:11)
[2022-07-28] MEDS: Cyanocobalamin (Vitamin B-12) 1,000 MCG TAB PO SCH (09:23)
[2022-07-28] MEDS: Leflunomide 10 mg Tablet PO SCH (09:23)
[2022-07-28] MEDS: Aspirin Chewable 81 MG TAB PO SCH (09:23)
[2022-07-28] MEDS: Cholecalciferol 1,000 UNITS (25 MCG) TAB PO SCH (09:23)
[2022-07-28] MEDS ORDERED: Nystatin Powder 15 GM BOT TOP PRN (09:28)
[2022-07-28] MEDS ORDERED: Nystatin Cream 15 GM TUBE TOP SCH (09:28)
[2022-07-28 09:39] LABS: Anisocytosis SLIGHT = 6-15 cells (100X) (0-5/hpf); Eosinophils 6 % (0-10); Lymphocytes 13 % (21-51); MDiff Complete? YES; Monocytes 16 % (0-10); Neutrophil 65 % (42-75); Platelet Morphology Comment Appears Adequate; Polychromasia SLIGHT = 2-3 cells (100X) (0-2/hpf)
[2022-07-28] MEDS ORDERED: Nystatin Powder 15 GM BOT TOP SCH (10:15)
[2022-07-28] MEDS: Albumin 25% 25 GM/100 ML BOT IVPB SCH ×3 (12:12→23:28)
[2022-07-28] MEDS: Cholestyramine/Aspartame 4 gm Packet PO SCH ×3 (12:13→22:04)
[2022-07-28] MEDS ORDERED: Furosemide 100 MG/10 ML VIAL SLOW IVP SCH (13:45)
[2022-07-28] MEDS ORDERED: Furosemide 40 MG/4 ML VIAL ONE (13:47)
[2022-07-28] MEDS ORDERED: Vancomycin HCl 1 GM in Sodium Chloride 0.9% 250 ML 250 ML IVPB SCH (13:52)
[2022-07-28] MEDS ORDERED: Meropenem 1 GM in Sodium Chloride 0.9% 100 ML IVPB SCH ×2 (14:00→14:15)
[2022-07-28 14:09] LABS: #Eosinphils 0.3 thou/uL (0.0-0.7); #Monocytes 0.1 thou/uL (0.11-0.59); %Basophils 0.5 % (0.0-1.0); %Eosinophils 3.2 % (0.0-10.0); %Lymphocytes 21.6 % (21.0-51.0); %Monocytes 0.7 % (0.0-10.0); Hemoglobin 9.5 g/dL (14.0-18.0); Mean Corpuscular HGB CONC 32.3 g/dL (32.0-36.0); Mean Corpuscular Hemoglobin 28.3 pg (27.0-31.0); Mean Corpuscular Volume 87.8 fl (78.0-98.0); Mean Platelet Volume 8.3 fL (7.4-10.4); Platelet Count 351 10x3/uL (130-400); RBC Distribution Width 16.5 % (11.5-14.5); Red Blood Cell (RBC) Count 3.36 mill/uL (4.70-6.10); White Blood Cell (WBC) Count 9.4 10x3/uL (4.8-10.8)
[2022-07-28] MEDS ORDERED: Vancomycin Dose by Levels Sliding Scale (Wt 71-99) FS SCH (14:15)
[2022-07-28] MEDS ORDERED: VANCOMYCIN 1.25 GM/250 ML BAG 1.25 GM in Premix Bag 1 BAG IVPB SCH (14:15)
[2022-07-28 14:20] LABS: Actual Bicarbonate (HCO3a) 19.2 mEq/L (22-28); Base Excess (BEa) -4.7 mEq/L (-2.0 to +3.0); CO2 Tension 30.6 mmHg (35.0-45.0); Calcium, Ionized (arterial) 1.03 mmol/L (1.12-1.30); Carboxyhemoglobin (COHb) 1.2 gm% (0.0-3.0); Hemoglobin (Hb) 8.6 g/dL (14.0-18.0); O2 Tension (PaO2), arterial 66.1 mmHg (> 60.0); Potassium - ABG Lab 4.63 mmol/L (3.70-5.30); Puncture Site RRA; pH, Arterial 7.42 (7.35-7.45)
[2022-07-28 14:21] LABS: INR-International Normal Ratio 1.4; PTT 38.2 sec (22.9-36.1); Prothrombin Time 17.5 sec (12.0-14.7)
[2022-07-28 14:30] LABS: ALT (SGPT) 8 U/L (8-55); AST (SGOT) 12 U/L (5-34); Albumin 4.5 g/dL (3.4-4.8); Alkaline Phosphatase 173 U/L (40-110); Anion Gap 21 mmol/L (10-20); BUN (Urea Nitrogen) 46 mg/dL (8.4-25.7); Bilirubin, Total 1.1 mg/dL (0.2-1.2); Calc. Creatinine Clearance 19 mL/min (70-130); Calcium 8.7 mg/dL (7.8-10.44); Carbon Dioxide 18 mmol/L (23-31); Chloride 105 mmol/L (98-107); Estimated GFR 16; Globulin 2.9 g/dL (2.4-3.5); Glucose 93 mg/dL (83-110); Magnesium 1.8 mg/dL (1.6-2.6); Potassium 4.7 mmol/L (3.5-5.1); Protein, Total 7.4 g/dL (5.8-8.1); Sodium 139 mmol/L (136-145)
[2022-07-28 14:35] LABS: Troponin I 0.012 ng/mL (< 0.028)
[2022-07-28 20:08] LABS: Legionella Urinary Ag Negative (Negative); Strep pneumo Urine Ag NEGATIVE (NEGATIVE)
[2022-07-28] MEDS: Atorvastatin Calcium 20 MG TAB PO SCH (21:08)
[2022-07-28] MEDS: Meropenem 500 MG in Sodium Chloride 0.9% 100 ML IVPB SCH (22:05)
[2022-07-28] MEDS: Nystatin Powder 15 GM BOT TOP SCH (22:07)
[2022-07-29] MEDS ORDERED: Melatonin 3 MG TAB PO SCH (00:45)
[2022-07-29 04:40] LABS: #Basophils 0.1 thou/uL (0.0-0.2); #Eosinphils 0.1 thou/uL (0.0-0.7); #Lymphocytes 1.6 thou/uL (1.20-3.40); #Monocytes 1.4 thou/uL (0.11-0.59); #Neutrophils 10.7 thou/uL (1.40-6.50); %Basophils 0.6 % (0.0-1.0); %Eosinophils 0.9 % (0.0-10.0); %Lymphocytes 11.3 % (21.0-51.0); %Monocytes 9.9 % (0.0-10.0); %Neutrophils 77.3 % (42.0-75.0); Hemoglobin 7.9 g/dL (14.0-18.0); Mean Corpuscular HGB CONC 33.2 g/dL (32.0-36.0); Mean Corpuscular Hemoglobin 29.1 pg (27.0-31.0); Mean Corpuscular Volume 87.4 fl (78.0-98.0); Mean Platelet Volume 8.5 fL (7.4-10.4); Platelet Count 224 10x3/uL (130-400); RBC Distribution Width 16.7 % (11.5-14.5); White Blood Cell (WBC) Count 13.8 10x3/uL (4.8-10.8)
[2022-07-29 05:04] LABS: Anion Gap 15 mmol/L (10-20); BUN (Urea Nitrogen) 49 mg/dL (8.4-25.7); Calc. Creatinine Clearance 18 mL/min (70-130); Calcium 8.2 mg/dL (7.8-10.44); Carbon Dioxide 23 mmol/L (23-31); Chloride 105 mmol/L (98-107); Estimated GFR 15; Glucose 103 mg/dL (83-110); Magnesium 1.8 mg/dL (1.6-2.6); Potassium 3.6 mmol/L (3.5-5.1); Sodium 139 mmol/L (136-145)
[2022-07-29] MEDS: Albumin 25% 25 GM/100 ML BOT IVPB SCH (05:17)
[2022-07-29] MEDS: Loperamide HCl 2 MG CAP PO SCH ×4 (05:17→22:56)
[2022-07-29] MEDS: Mometasone 100 MCG/Formoterol 5 MCG 120 PUFF INHALER INH SCH ×2 (08:11→19:11)
[2022-07-29] MEDS: Aspirin Chewable 81 MG TAB PO SCH (08:32)
[2022-07-29] MEDS: Cyanocobalamin (Vitamin B-12) 1,000 MCG TAB PO SCH (08:33)
[2022-07-29] MEDS: Cholecalciferol 1,000 UNITS (25 MCG) TAB PO SCH (08:33)
[2022-07-29] MEDS: Leflunomide 10 mg Tablet PO SCH (08:33)
[2022-07-29] MEDS: Amiodarone 200 MG TAB PO SCH ×2 (08:33→20:35)
[2022-07-29] MEDS: Nystatin Powder 15 GM BOT TOP SCH ×2 (08:34→20:42)
[2022-07-29] MEDS: Metoprolol Tartrate 25 MG TAB PO SCH ×2 (09:04→20:36)
[2022-07-29] MEDS: Meropenem 500 MG in Sodium Chloride 0.9% 100 ML IVPB SCH ×2 (10:01→22:53)
[2022-07-29] MEDS: Cholestyramine/Aspartame 4 gm Packet PO SCH ×3 (10:01→20:41)
[2022-07-29 15:10] LABS: Vancomycin, Random 12.8 ug/mL (See Comment)
[2022-07-29] MEDS: Furosemide 40 MG TAB PO SCH (15:41)
[2022-07-29] MEDS ORDERED: Vancomycin HCl 750 MG in Sodium Chloride 0.9% 250 ML 250 ML IVPB SCH (16:45)
[2022-07-29 17:27] LABS: Bilirubin Negative (Negative); Blood, Urine 3+ (Negative); CAUTI Indications for Culture Immunosuppressed; Clarity Clear (Clear); Glucose, Urine (Dipstick) Normal (Negative); Ketone, Urine Negative (Negative); Leukocyte 500 Leu/uL (Negative); Nitrite 2+ (Negative); Protein, Urine (Dipstick) 30 mg/dL (Neg-Trace); RBC/HPF 21-50 HPF (0-3); Specific Gravity, Urine 1.009 (1.002-1.036); Squamous Epithelial None Seen HPF (0-3); Urobilinogen Normal mg/dL (Less than 2); WBC/HPF Greater than 50 HPF (0-3); pH, Urine 6.5 (5.0-9.0)
[2022-07-29 17:30] LABS: Bacteria/HPF 1+ HPF (None Seen)
[2022-07-29 17:32] LABS: Urine Culture Reflex Yes Yes
[2022-07-29] MEDS: Atorvastatin Calcium 20 MG TAB PO SCH (20:36)
[2022-07-29] MEDS: Acetaminophen 325 MG TAB PO PRN (23:36)
[2022-07-29] MEDS: HYDROcodone/Acetaminophen 5/325 mg Tablet PO PRN (23:37)
[2022-07-30] MEDS: Loperamide HCl 2 MG CAP PO SCH ×4 (04:52→23:31)
[2022-07-30 05:58] LABS: #Basophils 0.1 thou/uL (0.0-0.2); #Eosinphils 0.4 thou/uL (0.0-0.7); #Lymphocytes 1.5 thou/uL (1.20-3.40); #Monocytes 1.1 thou/uL (0.11-0.59); #Neutrophils 6.2 thou/uL (1.40-6.50); %Basophils 0.7 % (0.0-1.0); %Eosinophils 4.6 % (0.0-10.0); %Lymphocytes 16.3 % (21.0-51.0); %Monocytes 11.6 % (0.0-10.0); %Neutrophils 66.8 % (42.0-75.0); Hemoglobin 7.9 g/dL (14.0-18.0); Mean Corpuscular HGB CONC 31.8 g/dL (32.0-36.0); Mean Corpuscular Hemoglobin 27.6 pg (27.0-31.0); Mean Corpuscular Volume 86.7 fl (78.0-98.0); Mean Platelet Volume 8.3 fL (7.4-10.4); Platelet Count 253 10x3/uL (130-400); RBC Distribution Width 16.8 % (11.5-14.5); Red Blood Cell (RBC) Count 2.85 mill/uL (4.70-6.10); White Blood Cell (WBC) Count 9.3 10x3/uL (4.8-10.8)
[2022-07-30 06:13] LABS: Anion Gap 14 mmol/L (10-20); BUN (Urea Nitrogen) 50 mg/dL (8.4-25.7); Calc. Creatinine Clearance 17 mL/min (70-130); Calcium 8.3 mg/dL (7.8-10.44); Carbon Dioxide 23 mmol/L (23-31); Chloride 105 mmol/L (98-107); Estimated GFR 16; Glucose 90 mg/dL (83-110); Magnesium 1.6 mg/dL (1.6-2.6); Potassium 3.2 mmol/L (3.5-5.1); Sodium 139 mmol/L (136-145)
[2022-07-30 06:16] LABS: ALT (SGPT) Less than 7 U/L (8-55); AST (SGOT) 27 U/L (5-34); Albumin 4.3 g/dL (3.4-4.8); Alkaline Phosphatase 141 U/L (40-110); Bilirubin, Direct 0.4 mg/dL (0.1-0.3); Bilirubin, Total 0.7 mg/dL (0.2-1.2); Protein, Total 6.9 g/dL (5.8-8.1)
[2022-07-30] MEDS ORDERED: Sterile Water 10 ML VIAL FS PRN (06:45)
[2022-07-30] MEDS ORDERED: OLANZapine 10 MG VIAL IM SCH (06:45)
[2022-07-30] MEDS: Mometasone 100 MCG/Formoterol 5 MCG 120 PUFF INHALER INH SCH ×2 (07:24→18:55)
[2022-07-30] MEDS ORDERED: Potassium Chloride 20 MEQ TAB PO SCH (09:00)
[2022-07-30] MEDS: Amiodarone 200 MG TAB PO SCH ×2 (09:20→21:43)
[2022-07-30] MEDS: Aspirin Chewable 81 MG TAB PO SCH (09:21)
[2022-07-30] MEDS: Cholecalciferol 1,000 UNITS (25 MCG) TAB PO SCH (09:21)
[2022-07-30] MEDS: Cyanocobalamin (Vitamin B-12) 1,000 MCG TAB PO SCH (09:22)
[2022-07-30] MEDS: Nystatin Powder 15 GM BOT TOP SCH ×2 (09:22→21:48)
[2022-07-30] MEDS: Leflunomide 10 mg Tablet PO SCH (09:22)
[2022-07-30] MEDS: Furosemide 40 MG TAB PO SCH ×2 (09:23→14:51)
[2022-07-30] MEDS ORDERED: traZODone HCl 50 MG TAB PO PRN (09:36)
[2022-07-30] MEDS: Albuterol 200 PUFF (6.7GM INHALER) INH SCH ×3 (10:05→18:55)
[2022-07-30] MEDS: Cholestyramine/Aspartame 4 gm Packet PO SCH ×2 (10:17→14:53)
[2022-07-30] MEDS: Metoprolol Tartrate 25 MG TAB PO SCH ×2 (10:21→21:43)
[2022-07-30] MEDS: HYDROcodone/Acetaminophen 5/325 mg Tablet PO PRN (12:28)
[2022-07-30] MEDS: Meropenem 500 MG in Sodium Chloride 0.9% 100 ML IVPB SCH ×2 (12:45→23:30)
[2022-07-30] MEDS: Melatonin 3 MG TAB PO SCH (21:43)
[2022-07-30] MEDS: Atorvastatin Calcium 20 MG TAB PO SCH (21:43)
[2022-07-30 21:52] LABS: Anion Gap 13 mmol/L (10-20); BUN (Urea Nitrogen) 49 mg/dL (8.4-25.7); Calc. Creatinine Clearance 17 mL/min (70-130); Calcium 8.1 mg/dL (7.8-10.44); Carbon Dioxide 25 mmol/L (23-31); Chloride 105 mmol/L (98-107); Estimated GFR 16; Glucose 130 mg/dL (83-110); Potassium 3.1 mmol/L (3.5-5.1); Sodium 140 mmol/L (136-145)
[2022-07-31] MEDS: Loperamide HCl 2 MG CAP PO SCH ×4 (05:05→23:17)
[2022-07-31] MEDS: Albuterol 200 PUFF (6.7GM INHALER) INH SCH ×4 (06:40→18:29)
[2022-07-31] MEDS: Mometasone 100 MCG/Formoterol 5 MCG 120 PUFF INHALER INH SCH ×2 (06:41→18:31)
[2022-07-31 06:55] LABS: #Eosinphils 0.4 thou/uL (0.0-0.7); #Lymphocytes 1.7 thou/uL (1.20-3.40); #Monocytes 1.1 thou/uL (0.11-0.59); #Neutrophils 6.4 thou/uL (1.40-6.50); %Basophils 0.3 % (0.0-1.0); %Eosinophils 4.1 % (0.0-10.0); %Lymphocytes 17.4 % (21.0-51.0); %Monocytes 11.5 % (0.0-10.0); %Neutrophils 66.7 % (42.0-75.0); Hemoglobin 7.9 g/dL (14.0-18.0); Mean Corpuscular Hemoglobin 27.8 pg (27.0-31.0); Mean Corpuscular Volume 86.8 fl (78.0-98.0); Mean Platelet Volume 7.9 fL (7.4-10.4); Platelet Count 253 10x3/uL (130-400); RBC Distribution Width 16.8 % (11.5-14.5); Red Blood Cell (RBC) Count 2.86 mill/uL (4.70-6.10); White Blood Cell (WBC) Count 9.5 10x3/uL (4.8-10.8)
[2022-07-31 07:04] LABS: Anion Gap 15 mmol/L (10-20); BUN (Urea Nitrogen) 47 mg/dL (8.4-25.7); Calc. Creatinine Clearance 17 mL/min (70-130); Calcium 8.1 mg/dL (7.8-10.44); Carbon Dioxide 25 mmol/L (23-31); Chloride 106 mmol/L (98-107); Estimated GFR 17; Glucose 86 mg/dL (83-110); Magnesium 1.6 mg/dL (1.6-2.6); Sodium 143 mmol/L (136-145)
[2022-07-31] MEDS: Cholecalciferol 1,000 UNITS (25 MCG) TAB PO SCH (10:08)
[2022-07-31] MEDS: Metoprolol Tartrate 25 MG TAB PO SCH ×3 (10:08→21:14)
[2022-07-31] MEDS: Aspirin Chewable 81 MG TAB PO SCH (10:09)
[2022-07-31] MEDS: Furosemide 40 MG TAB PO SCH ×2 (10:09→14:24)
[2022-07-31] MEDS: Amiodarone 200 MG TAB PO SCH ×2 (10:09→21:09)
[2022-07-31] MEDS: Cyanocobalamin (Vitamin B-12) 1,000 MCG TAB PO SCH (10:09)
[2022-07-31] MEDS: Leflunomide 10 mg Tablet PO SCH (10:10)
[2022-07-31 12:16] VITALS: BMI 23.3
[2022-07-31] MEDS: Meropenem 500 MG in Sodium Chloride 0.9% 100 ML IVPB SCH ×2 (15:07→23:18)
[2022-07-31] MEDS: Nystatin Powder 15 GM BOT TOP SCH ×2 (15:08→21:08)
[2022-07-31] MEDS: Atorvastatin Calcium 20 MG TAB PO SCH (21:08)
[2022-07-31] MEDS: Melatonin 3 MG TAB PO SCH (21:08)
[2022-08-01] MEDS: Albuterol 200 PUFF (6.7GM INHALER) INH SCH ×5 (04:41→19:49)
[2022-08-01] MEDS: Loperamide HCl 2 MG CAP PO SCH ×4 (05:15→23:39)
[2022-08-01 06:04] LABS: #Basophils 0.1 thou/uL (0.0-0.2); #Eosinphils 0.4 thou/uL (0.0-0.7); #Lymphocytes 1.8 thou/uL (1.20-3.40); #Neutrophils 6.6 thou/uL (1.40-6.50); %Basophils 0.8 % (0.0-1.0); %Eosinophils 4.3 % (0.0-10.0); %Lymphocytes 18.1 % (21.0-51.0); %Monocytes 9.8 % (0.0-10.0); Hemoglobin 9.6 g/dL (14.0-18.0); Mean Corpuscular HGB CONC 32.4 g/dL (32.0-36.0); Mean Corpuscular Hemoglobin 28.2 pg (27.0-31.0); Mean Corpuscular Volume 86.9 fl (78.0-98.0); Platelet Count 255 10x3/uL (130-400); White Blood Cell (WBC) Count 9.9 10x3/uL (4.8-10.8)
[2022-08-01 06:23] LABS: Anion Gap 16 mmol/L (10-20); BUN (Urea Nitrogen) 45 mg/dL (8.4-25.7); Calc. Creatinine Clearance 17 mL/min (70-130); Calcium 8.3 mg/dL (7.8-10.44); Carbon Dioxide 26 mmol/L (23-31); Chloride 104 mmol/L (98-107); Estimated GFR 17; Glucose 95 mg/dL (83-110); Magnesium 1.6 mg/dL (1.6-2.6); Potassium 2.9 mmol/L (3.5-5.1); Sodium 143 mmol/L (136-145)
[2022-08-01] MEDS: Mometasone 100 MCG/Formoterol 5 MCG 120 PUFF INHALER INH SCH ×2 (07:04→19:49)
[2022-08-01] MEDS ORDERED: Potassium Chloride 20 MEQ TAB PO SCH (09:00)
[2022-08-01] MEDS: Leflunomide 10 mg Tablet PO SCH (09:25)
[2022-08-01] MEDS: Aspirin Chewable 81 MG TAB PO SCH (09:25)
[2022-08-01] MEDS: Cyanocobalamin (Vitamin B-12) 1,000 MCG TAB PO SCH (09:25)
[2022-08-01] MEDS: Cholecalciferol 1,000 UNITS (25 MCG) TAB PO SCH (09:25)
[2022-08-01] MEDS: Nystatin Powder 15 GM BOT TOP SCH ×2 (09:27→20:35)
[2022-08-01] MEDS: Amiodarone 200 MG TAB PO SCH ×2 (09:27→20:34)
[2022-08-01] MEDS: Metoprolol Tartrate 25 MG TAB PO SCH ×2 (09:28→20:34)
[2022-08-01] MEDS: HYDROcodone/Acetaminophen 5/325 mg Tablet PO PRN (10:37)
[2022-08-01] MEDS: Meropenem 500 MG in Sodium Chloride 0.9% 100 ML IVPB SCH ×2 (10:38→23:40)
[2022-08-01] MEDS: Melatonin 3 MG TAB PO SCH (20:35)
[2022-08-01] MEDS: Atorvastatin Calcium 20 MG TAB PO SCH (20:35)
[2022-08-02] MEDS: Loperamide HCl 2 MG CAP PO SCH ×2 (06:36→10:44)
[2022-08-02] MEDS: Mometasone 100 MCG/Formoterol 5 MCG 120 PUFF INHALER INH SCH (07:14)
[2022-08-02] MEDS: Albuterol 200 PUFF (6.7GM INHALER) INH SCH ×3 (07:14→15:06)
[2022-08-02] MEDS ORDERED: Furosemide 40 MG TAB PO SCH (07:30)
[2022-08-02 08:11] LABS: Anion Gap 16 mmol/L (10-20); BUN (Urea Nitrogen) 44 mg/dL (8.4-25.7); Calc. Creatinine Clearance 18 mL/min (70-130); Calcium 8.3 mg/dL (7.8-10.44); Carbon Dioxide 24 mmol/L (23-31); Chloride 104 mmol/L (98-107); Estimated GFR 18; Glucose 100 mg/dL (83-110); Magnesium 1.6 mg/dL (1.6-2.6); Potassium 3.9 mmol/L (3.5-5.1); Sodium 140 mmol/L (136-145)
[2022-08-02] MEDS ORDERED: Cefepime 1 GM in Sodium Chloride 0.9% 100 ML IVPB SCH (09:00)
[2022-08-02] MEDS ORDERED: Amiodarone 200 MG TAB PO SCH (09:00)
[2022-08-02] MEDS ORDERED: Cefepime 0.5 GM in Sodium Chloride 0.9% 100 ML IVPB SCH (09:00)
[2022-08-02 09:21] LABS: Band 4 % (5-11); Eosinophils 3 % (0-10); Hemoglobin 9.9 g/dL (14.0-18.0); Hypochromia SLIGHT = 6-15 cells (100X) (0-5/hpf); Lymphocytes 17 % (21-51); MDiff Complete? YES; Mean Corpuscular HGB CONC 30.7 g/dL (32.0-36.0); Mean Corpuscular Hemoglobin 27.5 pg (27.0-31.0); Mean Corpuscular Volume 89.6 fl (78.0-98.0); Mean Platelet Volume 7.7 fL (7.4-10.4); Monocytes 5 % (0-10); Neutrophil 70 % (42-75); Platelet Count 262 10x3/uL (130-400); Platelet Morphology Comment Appears Adequate; Polychromasia SLIGHT = 2-3 cells (100X) (0-2/hpf); RBC Distribution Width 17.1 % (11.5-14.5); Reactive Lymphocytes 1 % (0-10); White Blood Cell (WBC) Count 10.3 10x3/uL (4.8-10.8)
[2022-08-02] MEDS: Cyanocobalamin (Vitamin B-12) 1,000 MCG TAB PO SCH (10:41)
[2022-08-02] MEDS: Metoprolol Tartrate 25 MG TAB PO SCH (10:41)
[2022-08-02] MEDS: Cholecalciferol 1,000 UNITS (25 MCG) TAB PO SCH (10:41)
[2022-08-02] MEDS: Aspirin Chewable 81 MG TAB PO SCH (10:41)
[2022-08-02] MEDS: Nystatin Powder 15 GM BOT TOP SCH (10:42)
[2022-08-02] MEDS: Heparin 5,000 UNITS/ML VIAL SC SCH ×2 (10:44→15:25)
[2022-08-02] MEDS: EPOETIN ALFA-EPBX (ESRD) 10,000 UNIT/ML VIAL SC SCH (10:57)
[2022-08-02] MEDS: Leflunomide 10 mg Tablet PO SCH (15:25)
[2022-08-02 16:09] VITALS: BP 132/66; TEMP 98.1
[2022-08-02] MEDS ORDERED: Cefepime 0.5 GM, Admixture Fee 1 EACH in Sodium Chloride 0.9% 100 ML IVPB SCH (21:00)
[2022-08-16] MEDS ORDERED: Amiodarone 200 MG TAB PO SCH (09:00)
== END 2022-08-02 16:50 | disposition home or self-care (01) | DRG 853 ==
LOC: ERS 07:31 → SDC 10:51 → IMCU/EMU 15:12 → 2NO 07-19 18:14 → T4-A 07-23 14:02 → CCU 07-28 14:22 → SURG B 07-29 11:44
PROVIDERS: ADMIT Hospitalist; ATTEND Hospitalist
PROC: 0V950ZZ Drainage of Scrotum, Open Approach (ICD-10-PCS; principal; 2022-07-11)
PROC: 3E03329 Introduction of Other Anti-infective into Peripheral Vein, Percutaneous Approach (ICD-10-PCS; 2022-07-11)
PROC: 30233J1 Transfusion of Nonautologous Serum Albumin into Peripheral Vein, Percutaneous Approach (ICD-10-PCS; 2022-07-11)
PROC: 0D9670Z Drainage of Stomach with Drainage Device, Via Natural or Artificial Opening (ICD-10-PCS; 2022-07-14)
PROC: 30233N1 Transfusion of Nonautologous Red Blood Cells into Peripheral Vein, Percutaneous Approach (ICD-10-PCS; 2022-07-26)
PROC: 4A133R1 Monitoring of Arterial Saturation, Peripheral, Percutaneous Approach (ICD-10-PCS; 2022-07-28)
PROC: 02HV33Z Insertion of Infusion Device into Superior Vena Cava, Percutaneous Approach (ICD-10-PCS; 2022-08-02)
PROC: B5181ZA Fluoroscopy of Superior Vena Cava using Low Osmolar Contrast, Guidance (ICD-10-PCS; 2022-08-02)
PROC: B548ZZA Ultrasonography of Superior Vena Cava, Guidance (ICD-10-PCS; 2022-08-02)
DX: A41.4 Sepsis due to anaerobes (principal); R65.20 Severe sepsis without septic shock; Z66 Do not resuscitate; Z20.822 Contact with and (suspected) exposure to COVID-19; J96.01 Acute respiratory failure with hypoxia; E87.0 Hyperosmolality and hypernatremia; T83.518A Infection and inflammatory reaction due to other urinary catheter, initial encounter; E87.20 Acidosis, unspecified; I13.0 Hypertensive heart and chronic kidney disease with heart failure and stage 1 through stage 4 chronic kidney disease, or unspecified chronic kidney disease; I50.32 Chronic diastolic (congestive) heart failure; N17.9 Acute kidney failure, unspecified; N18.4 Chronic kidney disease, stage 4 (severe); K56.7 Ileus, unspecified; D62 Acute posthemorrhagic anemia; N30.00 Acute cystitis without hematuria; N49.2 Inflammatory disorders of scrotum; M06.9 Rheumatoid arthritis, unspecified; E78.00 Pure hypercholesterolemia, unspecified; N49.3 Fournier gangrene; E11.9 Type 2 diabetes mellitus without complications; B96.20 Unspecified Escherichia coli [E. coli] as the cause of diseases classified elsewhere; B96.5 Pseudomonas (aeruginosa) (mallei) (pseudomallei) as the cause of diseases classified elsewhere; B95.2 Enterococcus as the cause of diseases classified elsewhere; D63.1 Anemia in chronic kidney disease; Y84.6 Urinary catheterization as the cause of abnormal reaction of the patient, or of later complication, without mention of misadventure at the time of the procedure; E83.42 Hypomagnesemia; E86.9 Volume depletion, unspecified; R19.7 Diarrhea, unspecified; E83.39 Other disorders of phosphorus metabolism; E87.6 Hypokalemia; I48.0 Paroxysmal atrial fibrillation; I45.10 Unspecified right bundle-branch block; Z88.8 Allergy status to other drugs, medicaments and biological substances; Z79.899 Other long term (current) drug therapy; Z79.82 Long term (current) use of aspirin; Z79.51 Long term (current) use of inhaled steroids; Z98.42 Cataract extraction status, left eye; Z98.890 Other specified postprocedural states; Z80.0 Family history of malignant neoplasm of digestive organs; Z85.51 Personal history of malignant neoplasm of bladder
CPT/HCPCS: 36415; 36416; 36430; 36569; 36600; 71045; 74018; 74176; 74250; 76870; 80048; 80053; 80061; 80069; 80076; 80202; 81001; 81003; 81015; 82274; 82550; 82553; 82565; 82728; 82805; 83036; 83540; 83550; 83605; 83735; 84100; 84145; 84443; 84484; 85025; 85027; 85520; 85610; 85730; 86140; 86850; 86900; 86901; 87040; 87070; 87077; 87081; 87086; 87149; 87186; 87205; 87324; 87449; 87811; 87899; 93005; 93010; 93306; 93976; 94760; 96361; 96365; 96367; 97139; C1751; C9113; J0282; J0692; J1364; J1644; J1650; J1940; J2185; J2270; J2272; J2405; J2543; J2704; J2916; J3010; J3370; J3475; J3480; J3490; J7050; J7070; J7611; J7620; P9016; P9047; Q5105; Q9963; S0028; U0002

== ENCOUNTER 2022-09-01 16:34 | Inpatient (IN) | payer MEDICARE, BC ==
[2022-09-01] MEDS ORDERED: Ondansetron ODT 4 MG TAB PO PRN (20:18)
[2022-09-01] MEDS ORDERED: Calcium Carbonate 500 MG ChewTAB PO PRN (20:18)
[2022-09-01] MEDS ORDERED: Senokot S 8.6-50 MG TAB PO PRN (20:18)
[2022-09-01 20:36] LABS: #Basophils 0.1 thou/uL (0.0-0.2); #Eosinphils 0.6 thou/uL (0.0-0.7); #Lymphocytes 2.4 thou/uL (1.20-3.40); #Monocytes 0.8 thou/uL (0.11-0.59); #Neutrophils 6.9 thou/uL (1.40-6.50); %Basophils 0.9 % (0.0-1.0); %Eosinophils 5.8 % (0.0-10.0); %Lymphocytes 22.4 % (21.0-51.0); %Neutrophils 63.9 % (42.0-75.0); Hemoglobin 10.3 g/dL (14.0-18.0); Mean Corpuscular HGB CONC 30.5 g/dL (32.0-36.0); Mean Corpuscular Volume 91.6 fl (78.0-98.0); Mean Platelet Volume 8.2 fL (7.4-10.4); Platelet Count 212 10x3/uL (130-400); RBC Distribution Width 17.6 % (11.5-14.5); Red Blood Cell (RBC) Count 3.68 mill/uL (4.70-6.10); White Blood Cell (WBC) Count 10.7 10x3/uL (4.8-10.8)
[2022-09-01] MEDS ORDERED: Ipratropium/Albuterol 3 ML NEB NEB SCH (20:45)
[2022-09-01 20:54] LABS: Lactic Acid 1.7 mmol/L (0.5-2.2)
[2022-09-01 20:59] LABS: ALT (SGPT) 7 U/L (8-55); AST (SGOT) 11 U/L (5-34); Albumin 3.5 g/dL (3.4-4.8); Alkaline Phosphatase 176 U/L (40-110); Anion Gap 18 mmol/L (10-20); BUN (Urea Nitrogen) 60 mg/dL (8.4-25.7); Calc. Creatinine Clearance 16 mL/min (70-130); Calcium 8.6 mg/dL (7.8-10.44); Carbon Dioxide 14 mmol/L (23-31); Chloride 107 mmol/L (98-107); Estimated GFR 16; Globulin 3.5 g/dL (2.4-3.5); Glucose 75 mg/dL (83-110); Sodium 135 mmol/L (136-145)
[2022-09-01] MEDS ORDERED: Famotidine 20 MG TAB PO SCH ×2 (21:00)
[2022-09-01] MEDS ORDERED: Magnesium 2 GM/50 ML(in water) 2 GM in Premix Bag 1 BAG IVPB SCH (21:15)
[2022-09-01] MEDS ORDERED: Cefepime 2 GM in Sodium Chloride 0.9% 100 ML IVPB SCH (22:00)
[2022-09-01 22:03] LABS: Base Excess -9.8 mEq/L (-2.0 to +3.0); Calcium, Ionized (venous) 0.99 mmol/L (1.16-1.32); Chloride (VBG) 107 mmol/L (98-106); Hematocrit-VBG 37 % (42.0-52.0); Hemoglobin (Hb) 12.6 g/dL (12.6-17.4); Potassium (VBG) 4.19 mmol/L (3.70-5.30); Sodium 136.1 mmol/L (133-146); pH (venous) 7.326 (7.32-7.43)
[2022-09-01 22:05] LABS: Actual Bicarbonate (HCO3v) 14.9 mEq/L (22-28)
[2022-09-01] MEDS: Metoprolol Tartrate 25 MG TAB PO SCH (22:29)
[2022-09-01] MEDS: methylPREDNISolone Sod Succ 40 MG VIAL IVP SCH (22:30)
[2022-09-01] MEDS: Ipratropium/Albuterol 3 ML NEB NEB SCH (22:35)
[2022-09-01] MEDS ORDERED: Lactated Ringer's 500 ML IV SCH (23:30)
[2022-09-02] MEDS ORDERED: Ipratropium/Albuterol 3 ML NEB NEB SCH (01:00)
[2022-09-02] MEDS: Ipratropium/Albuterol 3 ML NEB NEB SCH (02:13)
[2022-09-02 04:18] LABS: #Eosinphils 0.1 thou/uL (0.0-0.7); #Lymphocytes 0.9 thou/uL (1.20-3.40); #Monocytes 0.5 thou/uL (0.11-0.59); #Neutrophils 11.4 thou/uL (1.40-6.50); %Basophils 0.3 % (0.0-1.0); %Eosinophils 0.4 % (0.0-10.0); %Monocytes 3.7 % (0.0-10.0); %Neutrophils 88.7 % (42.0-75.0); Hemoglobin 9.7 g/dL (14.0-18.0); Mean Corpuscular HGB CONC 32.6 g/dL (32.0-36.0); Mean Corpuscular Hemoglobin 29.8 pg (27.0-31.0); Mean Corpuscular Volume 91.4 fl (78.0-98.0); Mean Platelet Volume 8.4 fL (7.4-10.4); Platelet Count 221 10x3/uL (130-400); RBC Distribution Width 17.7 % (11.5-14.5); Red Blood Cell (RBC) Count 3.24 mill/uL (4.70-6.10); White Blood Cell (WBC) Count 12.8 10x3/uL (4.8-10.8)
[2022-09-02 04:31] LABS: ALT (SGPT) 11 U/L (8-55); AST (SGOT) 12 U/L (5-34); Albumin 3.3 g/dL (3.4-4.8); Alkaline Phosphatase 181 U/L (40-110); Anion Gap 18 mmol/L (10-20); BUN (Urea Nitrogen) 64 mg/dL (8.4-25.7); Bilirubin, Total 1.1 mg/dL (0.2-1.2); Calc. Creatinine Clearance 15 mL/min (70-130); Calcium 8.6 mg/dL (7.8-10.44); Carbon Dioxide 12 mmol/L (23-31); Chloride 108 mmol/L (98-107); Estimated GFR 15; Globulin 3.4 g/dL (2.4-3.5); Glucose 110 mg/dL (83-110); Magnesium 2.4 mg/dL (1.6-2.6); Phosphorus 4.7 mg/dL (2.3-4.7); Potassium 4.3 mmol/L (3.5-5.1); Protein, Total 6.7 g/dL (5.8-8.1); Sodium 134 mmol/L (136-145)
[2022-09-02] MEDS: Mometasone 100 MCG/Formoterol 5 MCG 120 PUFF INHALER INH SCH ×2 (07:28→18:26)
[2022-09-02] MEDS ORDERED: Sodium Bicarbonate 150 MEQ in Dextrose 5% in Water 1,000 ML IV SCH (08:00)
[2022-09-02] MEDS ORDERED: Atorvastatin Calcium 20 MG TAB PO SCH (09:00)
[2022-09-02] MEDS ORDERED: Empagliflozin 10 MG TAB PO SCH (09:00)
[2022-09-02] MEDS: Amiodarone 200 MG TAB PO SCH (09:25)
[2022-09-02] MEDS: Magnesium Oxide 400 MG TAB PO SCH (09:25)
[2022-09-02] MEDS: Amlodipine 10 MG TAB PO SCH (09:25)
[2022-09-02] MEDS: Metoprolol Tartrate 25 MG TAB PO SCH ×2 (09:25→20:14)
[2022-09-02] MEDS: methylPREDNISolone Sod Succ 40 MG VIAL IVP SCH ×2 (09:26→20:14)
[2022-09-02] MEDS: Leflunomide 10 mg Tablet PO SCH (09:29)
[2022-09-02] MEDS: Aspirin Chewable 81 MG TAB PO SCH (09:29)
[2022-09-02] MEDS: Sodium Bicarbonate 150 MEQ in Dextrose 5% in Water 1,000 ML IV SCH ×2 (10:38→20:25)
[2022-09-02] MEDS ORDERED: Dextrose 50% Abboject 50 ML SYRINGE SLOW IVP PRN (17:32)
[2022-09-02] MEDS ORDERED: Dextrose 5% in Water 1,000 ML IV PRN ×2 (17:32→18:00)
[2022-09-02] MEDS ORDERED: HumaLOG 300 UNITS/3 ML VIAL SC PRN (17:32)
[2022-09-02] MEDS ORDERED: Dextrose 50% Abboject 50 ML SYRINGE IVP PRN (18:00)
[2022-09-02] MEDS: Insulin Regular 300 UNITS/3 ML VIAL SC PRN ×2 (18:18→20:17)
[2022-09-02] MEDS: Atorvastatin Calcium 20 MG TAB PO SCH (20:13)
[2022-09-02] MEDS: Famotidine 20 MG TAB PO SCH (20:13)
[2022-09-02] MEDS: Cefepime 1 GM in Sodium Chloride 0.9% 100 ML IVPB SCH (20:18)
[2022-09-02] MEDS: Acetaminophen 325 MG TAB PO PRN (22:26)
[2022-09-03 04:22] LABS: #Lymphocytes 0.8 thou/uL (1.20-3.40); #Monocytes 0.3 thou/uL (0.11-0.59); #Neutrophils 6.7 thou/uL (1.40-6.50); %Eosinophils 0.1 % (0.0-10.0); %Lymphocytes 9.7 % (21.0-51.0); %Monocytes 4.4 % (0.0-10.0); %Neutrophils 85.8 % (42.0-75.0); Hemoglobin 7.9 g/dL (14.0-18.0); Mean Corpuscular HGB CONC 33.2 g/dL (32.0-36.0); Mean Corpuscular Hemoglobin 29.5 pg (27.0-31.0); Mean Platelet Volume 8.6 fL (7.4-10.4); Platelet Count 194 10x3/uL (130-400); RBC Distribution Width 17.3 % (11.5-14.5); Red Blood Cell (RBC) Count 2.67 mill/uL (4.70-6.10); White Blood Cell (WBC) Count 7.8 10x3/uL (4.8-10.8)
[2022-09-03 04:27] LABS: Anion Gap 19 mmol/L (10-20); BUN (Urea Nitrogen) 80 mg/dL (8.4-25.7); Calc. Creatinine Clearance 14 mL/min (70-130); Calcium 8.3 mg/dL (7.8-10.44); Carbon Dioxide 17 mmol/L (23-31); Chloride 100 mmol/L (98-107); Estimated GFR 14; Glucose 216 mg/dL (83-110); Sodium 132 mmol/L (136-145)
[2022-09-03] MEDS: Insulin Regular 300 UNITS/3 ML VIAL SC PRN ×2 (05:34→11:50)
[2022-09-03] MEDS: Mometasone 100 MCG/Formoterol 5 MCG 120 PUFF INHALER INH SCH ×2 (07:45→19:07)
[2022-09-03] MEDS: Sodium Bicarbonate 150 MEQ in Dextrose 5% in Water 1,000 ML IV SCH ×2 (08:14→18:43)
[2022-09-03] MEDS: Metoprolol Tartrate 25 MG TAB PO SCH ×2 (09:41→21:12)
[2022-09-03] MEDS: Leflunomide 10 mg Tablet PO SCH (09:41)
[2022-09-03] MEDS: Magnesium Oxide 400 MG TAB PO SCH (09:41)
[2022-09-03] MEDS: Aspirin Chewable 81 MG TAB PO SCH (09:41)
[2022-09-03] MEDS: Amiodarone 200 MG TAB PO SCH (09:41)
[2022-09-03] MEDS: Amlodipine 10 MG TAB PO SCH (09:41)
[2022-09-03] MEDS: methylPREDNISolone Sod Succ 40 MG VIAL IVP SCH ×2 (09:41→21:15)
[2022-09-03] MEDS: Albumin 25% 25 GM/100 ML BOT IVPB SCH ×2 (14:41→18:23)
[2022-09-03] MEDS ORDERED: Loperamide HCl 2 MG CAP PO PRN (19:47)
[2022-09-03] MEDS: Famotidine 20 MG TAB PO SCH (21:14)
[2022-09-03] MEDS: Cefepime 1 GM in Sodium Chloride 0.9% 100 ML IVPB SCH (21:15)
[2022-09-03] MEDS: Atorvastatin Calcium 20 MG TAB PO SCH (21:15)
[2022-09-04] MEDS: Albumin 25% 25 GM/100 ML BOT IVPB SCH ×4 (01:04→17:04)
[2022-09-04 04:33] LABS: #Monocytes 0.3 thou/uL (0.11-0.59); #Neutrophils 5.6 thou/uL (1.40-6.50); %Basophils 0.2 % (0.0-1.0); %Lymphocytes 8.2 % (21.0-51.0); %Monocytes 5.1 % (0.0-10.0); %Neutrophils 85.9 % (42.0-75.0); Hemoglobin 7.6 g/dL (14.0-18.0); Mean Corpuscular HGB CONC 31.4 g/dL (32.0-36.0); Mean Corpuscular Hemoglobin 27.9 pg (27.0-31.0); Mean Platelet Volume 10.4 fL (7.4-10.4); Platelet Count 204 10x3/uL (130-400); RBC Distribution Width 18.9 % (11.5-14.5); Red Blood Cell (RBC) Count 2.72 mill/uL (4.70-6.10); White Blood Cell (WBC) Count 6.5 10x3/uL (4.8-10.8)
[2022-09-04 04:51] LABS: Anion Gap 19 mmol/L (10-20); BUN (Urea Nitrogen) 82 mg/dL (8.4-25.7); Calc. Creatinine Clearance 16 mL/min (70-130); Calcium 8.4 mg/dL (7.8-10.44); Carbon Dioxide 22 mmol/L (23-31); Chloride 99 mmol/L (98-107); Estimated GFR 16; Glucose 284 mg/dL (83-110); Potassium 3.7 mmol/L (3.5-5.1); Sodium 136 mmol/L (136-145)
[2022-09-04] MEDS: Insulin Regular 300 UNITS/3 ML VIAL SC PRN ×3 (06:14→22:02)
[2022-09-04] MEDS: Mometasone 100 MCG/Formoterol 5 MCG 120 PUFF INHALER INH SCH ×2 (06:52→18:30)
[2022-09-04] MEDS: Aspirin Chewable 81 MG TAB PO SCH (09:50)
[2022-09-04] MEDS: Leflunomide 10 mg Tablet PO SCH (09:50)
[2022-09-04] MEDS: methylPREDNISolone Sod Succ 40 MG VIAL IVP SCH ×2 (09:50→20:41)
[2022-09-04] MEDS: Metoprolol Tartrate 25 MG TAB PO SCH ×2 (09:50→20:40)
[2022-09-04] MEDS: Magnesium Oxide 400 MG TAB PO SCH (09:50)
[2022-09-04] MEDS: Amiodarone 200 MG TAB PO SCH (09:50)
[2022-09-04] MEDS: Sodium Bicarbonate 150 MEQ in Dextrose 5% in Water 1,000 ML IV SCH ×2 (10:03→21:04)
[2022-09-04] MEDS: Ipratropium/Albuterol 3 ML NEB NEB PRN (17:39)
[2022-09-04] MEDS: Famotidine 20 MG TAB PO SCH (20:40)
[2022-09-04] MEDS: Atorvastatin Calcium 20 MG TAB PO SCH (20:40)
[2022-09-04] MEDS: Cefepime 1 GM in Sodium Chloride 0.9% 100 ML IVPB SCH (21:00)
[2022-09-04] MEDS: Acetaminophen 325 MG TAB PO PRN (21:04)
[2022-09-05] MEDS: Albumin 25% 25 GM/100 ML BOT IVPB SCH ×2 (01:14→05:52)
[2022-09-05 06:02] LABS: #Monocytes 0.3 thou/uL (0.11-0.59); #Neutrophils 3.6 thou/uL (1.40-6.50); %Lymphocytes 10.3 % (21.0-51.0); %Monocytes 5.7 % (0.0-10.0); %Neutrophils 83.3 % (42.0-75.0); Hemoglobin 6.8 g/dL (14.0-18.0); Mean Corpuscular HGB CONC 31.6 g/dL (32.0-36.0); Mean Corpuscular Volume 88.5 fl (78.0-98.0); Mean Platelet Volume 10.3 fL (7.4-10.4); Platelet Count 191 10x3/uL (130-400); RBC Distribution Width 18.5 % (11.5-14.5); Red Blood Cell (RBC) Count 2.43 mill/uL (4.70-6.10); White Blood Cell (WBC) Count 4.4 10x3/uL (4.8-10.8)
[2022-09-05] MEDS: Insulin Regular 300 UNITS/3 ML VIAL SC PRN ×3 (06:08→20:12)
[2022-09-05 06:28] LABS: Anion Gap 18 mmol/L (10-20); BUN (Urea Nitrogen) 83 mg/dL (8.4-25.7); Calc. Creatinine Clearance 18 mL/min (70-130); Calcium 7.7 mg/dL (7.8-10.44); Carbon Dioxide 26 mmol/L (23-31); Chloride 93 mmol/L (98-107); Estimated GFR 19; Sodium 134 mmol/L (136-145)
[2022-09-05 06:33] LABS: Glucose 422 mg/dL (83-110)
[2022-09-05] MEDS: Mometasone 100 MCG/Formoterol 5 MCG 120 PUFF INHALER INH SCH ×2 (06:53→19:47)
[2022-09-05 07:31] VITALS: BMI 22.6
[2022-09-05] MEDS ORDERED: NPH, Human Insulin Isophane 300 UNITS/3 ML VIAL SC SCH ×2 (08:30→08:45)
[2022-09-05] MEDS ORDERED: Insulin NPH Human Isophane 100 UNITS/ML (10 ML VIAL) SC SCH (08:45)
[2022-09-05] MEDS ORDERED: Potassium Chloride 20 MEQ TAB PO SCH (09:00)
[2022-09-05] MEDS: Magnesium Oxide 400 MG TAB PO SCH (09:17)
[2022-09-05] MEDS: Aspirin Chewable 81 MG TAB PO SCH (09:17)
[2022-09-05] MEDS: Leflunomide 10 mg Tablet PO SCH (09:17)
[2022-09-05] MEDS: methylPREDNISolone Sod Succ 40 MG VIAL IVP SCH (09:18)
[2022-09-05] MEDS: Metoprolol Tartrate 25 MG TAB PO SCH ×2 (09:20→22:05)
[2022-09-05] MEDS: Amiodarone 200 MG TAB PO SCH (09:20)
[2022-09-05] MEDS: Ipratropium/Albuterol 3 ML NEB NEB PRN (13:12)
[2022-09-05] MEDS: Atorvastatin Calcium 20 MG TAB PO SCH (20:08)
[2022-09-05] MEDS: Cefepime 1 GM in Sodium Chloride 0.9% 100 ML IVPB SCH (22:06)
[2022-09-06 05:22] LABS: #Monocytes 0.4 thou/uL (0.11-0.59); #Neutrophils 4.4 thou/uL (1.40-6.50); %Lymphocytes 10.2 % (21.0-51.0); %Monocytes 8.1 % (0.0-10.0); Hemoglobin 8.3 g/dL (14.0-18.0); Mean Corpuscular HGB CONC 31.7 g/dL (32.0-36.0); Mean Corpuscular Hemoglobin 27.9 pg (27.0-31.0); Mean Corpuscular Volume 88.2 fl (78.0-98.0); Mean Platelet Volume 10.2 fL (7.4-10.4); Platelet Count 180 10x3/uL (130-400); RBC Distribution Width 18.6 % (11.5-14.5); Red Blood Cell (RBC) Count 2.97 mill/uL (4.70-6.10); White Blood Cell (WBC) Count 5.4 10x3/uL (4.8-10.8)
[2022-09-06 05:47] LABS: Anion Gap 15 mmol/L (10-20); BUN (Urea Nitrogen) 82 mg/dL (8.4-25.7); Calc. Creatinine Clearance 20 mL/min (70-130); Calcium 7.6 mg/dL (7.8-10.44); Carbon Dioxide 26 mmol/L (23-31); Chloride 100 mmol/L (98-107); Estimated GFR 22; Glucose 166 mg/dL (83-110); Potassium 3.3 mmol/L (3.5-5.1); Sodium 138 mmol/L (136-145)
[2022-09-06] MEDS: Mometasone 100 MCG/Formoterol 5 MCG 120 PUFF INHALER INH SCH (07:15)
[2022-09-06] MEDS: Ipratropium/Albuterol 3 ML NEB NEB PRN (07:15)
[2022-09-06] MEDS ORDERED: predniSONE 20 MG TAB PO SCH (08:00)
[2022-09-06] MEDS: Magnesium Oxide 400 MG TAB PO SCH (08:55)
[2022-09-06] MEDS: Metoprolol Tartrate 25 MG TAB PO SCH (08:55)
[2022-09-06] MEDS: Aspirin Chewable 81 MG TAB PO SCH (09:00)
[2022-09-06] MEDS: Amiodarone 200 MG TAB PO SCH (09:01)
[2022-09-06] MEDS: Leflunomide 10 mg Tablet PO SCH (09:09)
[2022-09-06] MEDS ORDERED: Potassium Chloride 20 MEQ TAB PO SCH (09:30)
[2022-09-06 12:12] VITALS: BP 133/67; TEMP 97.6
[2022-09-06] MEDS: Insulin Regular 300 UNITS/3 ML VIAL SC PRN (13:37)
== END 2022-09-06 15:20 | disposition home or self-care (01) | DRG 189 ==
LOC: 2NO 19:44 → IMCU/EMU 21:12 → SJJU 09-04 06:06
PROVIDERS: ADMIT Internal Medicine; ATTEND Internal Medicine
PROC: 30233N1 Transfusion of Nonautologous Red Blood Cells into Peripheral Vein, Percutaneous Approach (ICD-10-PCS; principal; 2022-09-05)
DX: J96.21 Acute and chronic respiratory failure with hypoxia (principal); J44.1 Chronic obstructive pulmonary disease with (acute) exacerbation; E87.20 Acidosis, unspecified; I50.32 Chronic diastolic (congestive) heart failure; N18.4 Chronic kidney disease, stage 4 (severe); N17.9 Acute kidney failure, unspecified; N13.6 Pyonephrosis; E87.1 Hypo-osmolality and hyponatremia; E11.22 Type 2 diabetes mellitus with diabetic chronic kidney disease; I48.91 Unspecified atrial fibrillation; M06.9 Rheumatoid arthritis, unspecified; D63.1 Anemia in chronic kidney disease; E11.65 Type 2 diabetes mellitus with hyperglycemia; I95.1 Orthostatic hypotension; Z90.49 Acquired absence of other specified parts of digestive tract; Z79.899 Other long term (current) drug therapy; Z79.82 Long term (current) use of aspirin; Z85.51 Personal history of malignant neoplasm of bladder
CPT/HCPCS: 36415; 36416; 36430; 71045; 80048; 80053; 82805; 83605; 83735; 84100; 85025; 85046; 86850; 86900; 86901; 87040; 87077; 87086; 87186; 93005; 93010; 94640; 97139; J0692; J1815; J2920; J3475; J3490; J7070; J7120; J7620; P9016; P9047

== ENCOUNTER 2023-02-24 09:36 | Emergency (ER) | payer MEDICARE, BC ==
[2023-02-24 10:39] LABS: #Basophils 0.1 thou/uL (0.0-0.2); #Eosinphils 0.6 thou/uL (0.0-0.7); #Monocytes 0.9 thou/uL (0.11-0.59); #Neutrophils 5.9 thou/uL (1.40-6.50); %Basophils 0.7 % (0.0-1.0); %Eosinophils 5.8 % (0.0-10.0); %Lymphocytes 21.2 % (21.0-51.0); %Monocytes 9.6 % (0.0-10.0); %Neutrophils 61.9 % (42.0-75.0); Hematocrit 33.7 % (42.0-52.0); Hemoglobin 10.2 g/dL (14.0-18.0); Mean Corpuscular HGB CONC 30.3 g/dL (32.0-36.0); Mean Corpuscular Hemoglobin 27.7 pg (27.0-31.0); Mean Corpuscular Volume 91.6 fl (78.0-98.0); Mean Platelet Volume 9.9 fL (7.4-10.4); Platelet Count 234 10x3/uL (130-400); RBC Distribution Width 15.9 % (11.5-14.5); Red Blood Cell (RBC) Count 3.68 mill/uL (4.70-6.10); White Blood Cell (WBC) Count 9.6 10x3/uL (4.8-10.8)
[2023-02-24 11:01] LABS: ALT (SGPT) 9 U/L (8-55); AST (SGOT) 12 U/L (5-34); Albumin 3.9 g/dL (3.4-4.8); Alkaline Phosphatase 121 U/L (40-110); Anion Gap 18 mmol/L (10-20); BUN (Urea Nitrogen) 50 mg/dL (8.4-25.7); Bilirubin, Total 0.7 mg/dL (0.2-1.2); Calc. Creatinine Clearance 0 mL/min (70-130); Calcium 8.7 mg/dL (7.8-10.44); Carbon Dioxide 17 mmol/L (23-31); Chloride 106 mmol/L (98-107); Estimated GFR 17; Globulin 3.4 g/dL (2.4-3.5); Glucose 74 mg/dL (83-110); Potassium 4.1 mmol/L (3.5-5.1); Protein, Total 7.3 g/dL (5.8-8.1); Sodium 137 mmol/L (136-145)
[2023-02-24] MEDS ORDERED: fentaNYL 50 mcg/mL 1 mL Vial ONE ×2 (11:01→12:57)
[2023-02-24] MEDS ORDERED: Ipratropium/Albuterol 3 ML NEB ONE ×2 (11:04→13:51)
[2023-02-24 11:05] LABS: Troponin I 0.034 ng/mL (< 0.028)
[2023-02-24] MEDS ORDERED: Acetaminophen 500 MG TAB ONE (12:56)
[2023-02-24] MEDS ORDERED: Furosemide 20 MG/2 ML VIAL ONE (13:25)
[2023-02-24] MEDS ORDERED: Morphine 2 MG/ML VIAL ONE (13:51)
== END 2023-02-24 17:09 | disposition short-term general hospital (02) ==
LOC: ERS 09:36
DX: S70.02XA Contusion of left hip, initial encounter (principal); R07.9 Chest pain, unspecified; R79.89 Other specified abnormal findings of blood chemistry; J90 Pleural effusion, not elsewhere classified; E11.9 Type 2 diabetes mellitus without complications; E78.5 Hyperlipidemia, unspecified; I10 Essential (primary) hypertension; W18.30XA Fall on same level, unspecified, initial encounter
CPT/HCPCS: 36415; 71045; 80053; 83605; 83735; 83880; 84484; 85025; 93005; J1940; J2272; J3010; J7620